=== PATIENT | female | born 1980 | race Caucasian/White ===

== ENCOUNTER 2017-09-03 14:58 | Inpatient (IN) ==
[2017-09-03] MEDS ORDERED: ONDANSETRON 4 MG/2 ML VIAL IV PRN (16:08)
[2017-09-03] MEDS ORDERED: DEXTROSE 50% 25 GM/50 ML VIAL IV PRN (16:08)
[2017-09-03] MEDS ORDERED: GLUCAGON 1 MG VIAL IM PRN (16:08)
[2017-09-03] MEDS ORDERED: ACETAMINOPHEN 325 MG TABLET PO PRN (16:08)
[2017-09-03] MEDS: INSULIN LISPRO 100 UNIT/ML SUBCUT SCH ×2 (16:38→21:21)
[2017-09-03 17:16] LABS: Basophils # 0.1 10*3/uL (0.0-0.2); Basophils % 0.4 % (0.0-0.8); Eosinophils # 0.2 10*3/uL (0.0-0.87); Eosinophils % 0.9 % (0.00-10.9); Hematocrit 40.9 VOL% (35.7-47.0); Immature Granulocytes % 0.6 %; Lymphocytes # 2.5 10*3/uL (1.4-4.0); Mean Corpuscular HGB Conc 34.2 GM/DL (32-36); Mean Corpuscular Hemoglobin 31 PG (27-34); Mean Corpuscular Volume 89.1 FL (87-102); Mean Platelet Volume 11.7 FL (9.6-12.0); Monocytes # 1.7 10*3/uL (0.11-0.8); Monocytes % 10.1 % (1.7-12.7); Neutrophils # 12.1 10*3/uL (1.4-7.4); Platelet Count 293 T/CUMM (130-400); Red Blood Count 4.59 MC/CUMM (3.8-5.5); White Blood Count 16.5 T/CUMM (4-12)
[2017-09-03] MEDS: ceFAZolin 1,000 MG in SYRINGE 1 EACH IV SCH (17:36)
[2017-09-03] MEDS: SODIUM CHLORIDE 0.9% 1,000 ML IV SCH (17:36)
[2017-09-03 17:41] LABS: Albumin 2.8 G/DL (3.4-5.0); Bilirubin,Total 0.8 MG/DL (0.2-1.0); Calcium 9.2 MG/DL (8.5-10.1); Osmolality,Calculated 274.8 MOS/KG (273-304); Potassium 3.6 MMOL/L (3.5-5.1); Total Protein 7.8 G/DL (6.4-8.3)
[2017-09-03] MEDS: CLINDAMYCIN INJ 600 MG in PREMIX 1 EACH IV SCH (17:41)
[2017-09-03] MEDS ORDERED: busPIRone 5 MG TABLET PO PRN (20:10)
[2017-09-03] MEDS ORDERED: CYCLOBENZAPRINE 10 MG TABLET PO PRN (20:10)
[2017-09-03] MEDS ORDERED: ALBUTEROL 2.5 MG/3 ML NEB RESP TX PRN (20:10)
[2017-09-03] MEDS: DOCUSATE SODIUM 100 MG CAPSULE PO SCH (21:19)
[2017-09-03 21:38] LABS: Apearance,Urine CLEAR (Clear); Bilirubin,Urine Negative (Negative); Blood, Urine Small mg/dL (Negative); Glucose,Urine (UA) >=500 mg/dL (Negative); Ketones,Urine 20 mg/dL (Negative); Nitrite,Urine Negative (Negative); Protein,Urine Negative; RBC,Urine 2 /HPF (0-4); Squamous Epithelial Cell,Urine Occasional /HPF (0-10); Urine Color Yellow (Yellow); Urine Specific Gravity 1.052 (1.001-1.035); Urine Urobilinogen < 2.0 EU/DL (0.2-1.0); WBC,Urine 1 /HPF (0-6)
[2017-09-03 21:48] LABS: Barbiturates Screen,Urine Negative (Negative); Benzodiazepines Screen,Urine Negative (Negative); Cannabinoid Screen,Urine Negative (Negative); Opiate Screen,Urine Positive (Negative); Phencyclidine Screen,Urine Negative (Negative)
[2017-09-04] MEDS: ceFAZolin 1,000 MG in SYRINGE 1 EACH IV SCH ×3 (01:06→16:54)
[2017-09-04] MEDS: CLINDAMYCIN INJ 600 MG in PREMIX 1 EACH IV SCH ×3 (01:12→16:58)
[2017-09-04] MEDS: SODIUM CHLORIDE 0.9% 1,000 ML IV SCH ×4 (01:13→18:43)
[2017-09-04 07:16] LABS: Basophils # 0.1 10*3/uL (0.0-0.2); Basophils % 0.4 % (0.0-0.8); Eosinophils # 0.2 10*3/uL (0.0-0.87); Eosinophils % 1.2 % (0.00-10.9); Hematocrit 35.5 VOL% (35.7-47.0); Hemoglobin 12.1 GM/DL (12.0-16.0); Immature Granulocytes % 0.8 %; Lymphocytes # 2.3 10*3/uL (1.4-4.0); Lymphocytes % 17.3 % (21.3-54.2); Mean Corpuscular HGB Conc 34.1 GM/DL (32-36); Mean Corpuscular Hemoglobin 31 PG (27-34); Mean Corpuscular Volume 89.6 FL (87-102); Mean Platelet Volume 11.5 FL (9.6-12.0); Monocytes # 1.2 10*3/uL (0.11-0.8); Neutrophils # 9.3 10*3/uL (1.4-7.4); Neutrophils % 71.3 % (38.7-73.9); Platelet Count 237 T/CUMM (130-400); Red Blood Count 3.96 MC/CUMM (3.8-5.5)
[2017-09-04] MEDS: TOPIRAMATE 25 MG TABLET PO SCH ×4 (07:34→21:22)
[2017-09-04 07:42] LABS: Calcium 7.4 MG/DL (8.5-10.1); Osmolality,Calculated 278.1 MOS/KG (273-304); Potassium 3.5 MMOL/L (3.5-5.1)
[2017-09-04] MEDS: INSULIN LISPRO 100 UNIT/ML SUBCUT SCH ×4 (09:11→21:22)
[2017-09-04] MEDS ORDERED: MAGNESIUM SULF RIDER 2 GM in PREMIX 1 EACH IV ONE (09:16)
[2017-09-04] MEDS ORDERED: DIAZEPAM 5 MG TABLET PO ONE (09:34)
[2017-09-04] MEDS: metFORMIN 500 MG TABLET PO SCH ×3 (09:41→18:05)
[2017-09-04] MEDS: glipiZIDE 10 MG TABLET PO SCH ×3 (09:42→21:21)
[2017-09-04] MEDS: LISINOPRIL/HCTZ 10-12.5 MG TABLET PO SCH (09:53)
[2017-09-04] MEDS: PANTOPRAZOLE 40 MG TABLET PO SCH (09:54)
[2017-09-04] MEDS ORDERED: BUPIVACAINE 0.25% /EPI 10 ML VIAL ONE (11:13)
[2017-09-04] MEDS ORDERED: ALBUTEROL/IPRATROPIUM 3 ML NEB RESP TX ONE (12:29)
[2017-09-04] MEDS ORDERED: SEVOFLURANE 1 UNIT/15 MINUTE INH ONE (12:39)
[2017-09-04] MEDS ORDERED: PROPOFOL 200 MG/20 ML VIAL IV ONE (12:39)
[2017-09-04] MEDS ORDERED: SUCCINYLCHOLINE 200 MG/10 ML VIAL ONE (12:40)
[2017-09-04] MEDS ORDERED: MIDAZOLAM 2 MG/2 ML VIAL ONE (12:40)
[2017-09-04] MEDS ORDERED: fentaNYL 100 MCG/2 ML VIAL ONE (12:40)
[2017-09-04] MEDS ORDERED: PHENYLEPHRINE 1 MG/10 ML SYRINGE IV ONE (12:41)
[2017-09-04] MEDS ORDERED: ONDANSETRON 4 MG/2 ML VIAL ONE (12:42)
[2017-09-04] MEDS ORDERED: HYDROmorphone 2 MG/1 ML VIAL ONE (12:42)
[2017-09-04] MEDS ORDERED: ONDANSETRON 4 MG/2 ML VIAL IV PRN (12:43)
[2017-09-04] MEDS: HYDROmorphone 2 MG/1 ML VIAL IV PRN ×2 (12:45→12:55)
[2017-09-04] MEDS: BUDESONIDE/FORMOTEROL 160-4.5 INHALER 6 GM INH SCH ×3 (13:10→21:22)
[2017-09-04] MEDS: DOCUSATE SODIUM 100 MG CAPSULE PO SCH ×2 (14:40→21:21)
[2017-09-04] MEDS: PIOGLITAZONE 15 MG TABLET PO SCH (14:42)
[2017-09-05] MEDS: SODIUM CHLORIDE 0.9% 1,000 ML IV SCH ×2 (01:10→09:50)
[2017-09-05] MEDS: ceFAZolin 1,000 MG in SYRINGE 1 EACH IV SCH ×3 (01:15→17:50)
[2017-09-05] MEDS: CLINDAMYCIN INJ 600 MG in PREMIX 1 EACH IV SCH ×3 (01:18→17:49)
[2017-09-05] MEDS: TOPIRAMATE 25 MG TABLET PO SCH ×3 (07:21→21:30)
[2017-09-05] MEDS: metFORMIN 500 MG TABLET PO SCH ×3 (08:05→17:49)
[2017-09-05 08:12] LABS: Basophils # 0.1 10*3/uL (0.0-0.2); Basophils % 0.5 % (0.0-0.8); Eosinophils # 0.2 10*3/uL (0.0-0.87); Eosinophils % 1.8 % (0.00-10.9); Hematocrit 37.9 VOL% (35.7-47.0); Hemoglobin 12.9 GM/DL (12.0-16.0); Immature Granulocytes Absolute 0.13 #; Lymphocytes # 2.3 10*3/uL (1.4-4.0); Lymphocytes % 17.5 % (21.3-54.2); Mean Corpuscular Hemoglobin 31 PG (27-34); Mean Corpuscular Volume 91.1 FL (87-102); Monocytes # 0.9 10*3/uL (0.11-0.8); Monocytes % 6.7 % (1.7-12.7); Neutrophils # 9.3 10*3/uL (1.4-7.4); Neutrophils % 72.5 % (38.7-73.9); Platelet Count 277 T/CUMM (130-400); Red Blood Count 4.16 MC/CUMM (3.8-5.5); White Blood Count 12.9 T/CUMM (4-12)
[2017-09-05 08:46] LABS: Calcium 8.6 MG/DL (8.5-10.1); Osmolality,Calculated 277.8 MOS/KG (273-304); Potassium 3.5 MMOL/L (3.5-5.1)
[2017-09-05] MEDS: BUDESONIDE/FORMOTEROL 160-4.5 INHALER 6 GM INH SCH ×2 (09:46→21:29)
[2017-09-05] MEDS: INSULIN LISPRO 100 UNIT/ML SUBCUT SCH ×4 (09:46→21:25)
[2017-09-05] MEDS: PIOGLITAZONE 15 MG TABLET PO SCH (09:56)
[2017-09-05] MEDS: DOCUSATE SODIUM 100 MG CAPSULE PO SCH ×2 (09:56→21:25)
[2017-09-05] MEDS: PANTOPRAZOLE 40 MG TABLET PO SCH (09:56)
[2017-09-05] MEDS: glipiZIDE 10 MG TABLET PO SCH ×2 (09:56→21:24)
[2017-09-05] MEDS: LISINOPRIL/HCTZ 10-12.5 MG TABLET PO SCH (13:54)
[2017-09-06] MEDS: ceFAZolin 1,000 MG in SYRINGE 1 EACH IV SCH ×3 (01:05→17:14)
[2017-09-06] MEDS: CLINDAMYCIN INJ 600 MG in PREMIX 1 EACH IV SCH ×3 (01:47→17:19)
[2017-09-06 05:35] LABS: Basophils # 0.1 10*3/uL (0.0-0.2); Basophils % 0.6 % (0.0-0.8); Eosinophils # 0.4 10*3/uL (0.0-0.87); Hemoglobin 12.7 GM/DL (12.0-16.0); Immature Granulocytes % 1.3 %; Immature Granulocytes Absolute 0.15 #; Lymphocytes # 2.4 10*3/uL (1.4-4.0); Lymphocytes % 20.5 % (21.3-54.2); Mean Corpuscular HGB Conc 33.4 GM/DL (32-36); Mean Corpuscular Hemoglobin 30 PG (27-34); Mean Corpuscular Volume 89.8 FL (87-102); Mean Platelet Volume 10.8 FL (9.6-12.0); Monocytes # 0.8 10*3/uL (0.11-0.8); Monocytes % 6.9 % (1.7-12.7); Neutrophils # 7.8 10*3/uL (1.4-7.4); Neutrophils % 67.7 % (38.7-73.9); Platelet Count 322 T/CUMM (130-400); Red Blood Count 4.23 MC/CUMM (3.8-5.5); Red Cell Distribution Width 12.3 % (9.3-17.3); White Blood Count 11.6 T/CUMM (4-12)
[2017-09-06 05:52] LABS: Calcium 8.4 MG/DL (8.5-10.1); Osmolality,Calculated 277.7 MOS/KG (273-304); Potassium 3.6 MMOL/L (3.5-5.1)
[2017-09-06] MEDS: TOPIRAMATE 25 MG TABLET PO SCH ×3 (06:15→21:20)
[2017-09-06] MEDS: SODIUM CHLORIDE 0.9% 1,000 ML IV SCH (07:07)
[2017-09-06] MEDS: glipiZIDE 10 MG TABLET PO SCH ×2 (09:50→21:14)
[2017-09-06] MEDS: metFORMIN 500 MG TABLET PO SCH ×3 (09:50→17:15)
[2017-09-06] MEDS: PANTOPRAZOLE 40 MG TABLET PO SCH (09:51)
[2017-09-06] MEDS: DOCUSATE SODIUM 100 MG CAPSULE PO SCH ×2 (09:51→21:14)
[2017-09-06] MEDS: PIOGLITAZONE 15 MG TABLET PO SCH (09:51)
[2017-09-06] MEDS: LISINOPRIL/HCTZ 10-12.5 MG TABLET PO SCH (09:56)
[2017-09-06] MEDS: INSULIN LISPRO 100 UNIT/ML SUBCUT SCH ×4 (09:58→21:19)
[2017-09-06] MEDS: BUDESONIDE/FORMOTEROL 160-4.5 INHALER 6 GM INH SCH ×2 (10:14→21:20)
[2017-09-06] MEDS ORDERED: hydrALAZINE 20 MG/1 ML VIAL IV PRN (10:57)
[2017-09-07] MEDS: ceFAZolin 1,000 MG in SYRINGE 1 EACH IV SCH ×3 (01:14→17:40)
[2017-09-07] MEDS: CLINDAMYCIN INJ 600 MG in PREMIX 1 EACH IV SCH ×3 (01:18→17:45)
[2017-09-07 06:55] LABS: Basophils # 0.1 10*3/uL (0.0-0.2); Basophils % 0.7 % (0.0-0.8); Eosinophils # 0.4 10*3/uL (0.0-0.87); Eosinophils % 3.5 % (0.00-10.9); Hemoglobin 12.8 GM/DL (12.0-16.0); Immature Granulocytes % 1.3 %; Immature Granulocytes Absolute 0.16 #; Lymphocytes # 2.4 10*3/uL (1.4-4.0); Lymphocytes % 19.9 % (21.3-54.2); Mean Corpuscular HGB Conc 33.7 GM/DL (32-36); Mean Corpuscular Hemoglobin 30 PG (27-34); Mean Corpuscular Volume 89.8 FL (87-102); Mean Platelet Volume 10.9 FL (9.6-12.0); Monocytes # 0.8 10*3/uL (0.11-0.8); Monocytes % 6.7 % (1.7-12.7); Neutrophils # 8.2 10*3/uL (1.4-7.4); Neutrophils % 67.9 % (38.7-73.9); Platelet Count 355 T/CUMM (130-400); Red Blood Count 4.23 MC/CUMM (3.8-5.5); Red Cell Distribution Width 12.3 % (9.3-17.3); White Blood Count 12.1 T/CUMM (4-12)
[2017-09-07] MEDS: TOPIRAMATE 25 MG TABLET PO SCH ×3 (07:13→21:40)
[2017-09-07 07:26] LABS: Calcium 8.3 MG/DL (8.5-10.1); Osmolality,Calculated 273.1 MOS/KG (273-304); Potassium 3.7 MMOL/L (3.5-5.1)
[2017-09-07] MEDS: metFORMIN 500 MG TABLET PO SCH ×3 (08:46→17:41)
[2017-09-07] MEDS: glipiZIDE 10 MG TABLET PO SCH ×2 (08:47→21:39)
[2017-09-07] MEDS: PIOGLITAZONE 15 MG TABLET PO SCH (08:47)
[2017-09-07] MEDS: LISINOPRIL/HCTZ 10-12.5 MG TABLET PO SCH (08:47)
[2017-09-07] MEDS: DOCUSATE SODIUM 100 MG CAPSULE PO SCH ×2 (08:48→21:39)
[2017-09-07] MEDS: PANTOPRAZOLE 40 MG TABLET PO SCH (08:48)
[2017-09-07] MEDS: INSULIN LISPRO 100 UNIT/ML SUBCUT SCH ×4 (09:50→21:39)
[2017-09-07] MEDS: BUDESONIDE/FORMOTEROL 160-4.5 INHALER 6 GM INH SCH ×2 (10:09→21:40)
[2017-09-08] MEDS: ceFAZolin 1,000 MG in SYRINGE 1 EACH IV SCH ×3 (00:10→22:47)
[2017-09-08] MEDS: CLINDAMYCIN INJ 600 MG in PREMIX 1 EACH IV SCH ×3 (02:02→17:17)
[2017-09-08] MEDS: TOPIRAMATE 25 MG TABLET PO SCH ×3 (05:33→22:52)
[2017-09-08 08:04] LABS: Basophils # 0.1 10*3/uL (0.0-0.2); Basophils % 0.7 % (0.0-0.8); Eosinophils # 0.5 10*3/uL (0.0-0.87); Eosinophils % 3.5 % (0.00-10.9); Hemoglobin 13.7 GM/DL (12.0-16.0); Immature Granulocytes % 1.6 %; Immature Granulocytes Absolute 0.24 #; Lymphocytes # 2.9 10*3/uL (1.4-4.0); Lymphocytes % 19.9 % (21.3-54.2); Mean Corpuscular HGB Conc 33.4 GM/DL (32-36); Mean Corpuscular Hemoglobin 30 PG (27-34); Mean Corpuscular Volume 89.5 FL (87-102); Mean Platelet Volume 10.8 FL (9.6-12.0); Monocytes # 0.9 10*3/uL (0.11-0.8); Monocytes % 6.1 % (1.7-12.7); Neutrophils % 68.2 % (38.7-73.9); Platelet Count 400 T/CUMM (130-400); Red Blood Count 4.58 MC/CUMM (3.8-5.5); Red Cell Distribution Width 12.5 % (9.3-17.3); White Blood Count 14.8 T/CUMM (4-12)
[2017-09-08 08:37] LABS: Calcium 8.8 MG/DL (8.5-10.1); Osmolality,Calculated 274.5 MOS/KG (273-304); Potassium 3.6 MMOL/L (3.5-5.1)
[2017-09-08 08:57] LABS: T4 (Thyroxine) 10.7 UG/DL (4.7-13.3); Thyroid Stimulating Hormone 0.294 uIU/ml (0.358-3.74)
[2017-09-08] MEDS: glipiZIDE 10 MG TABLET PO SCH ×2 (09:14→22:45)
[2017-09-08] MEDS: PIOGLITAZONE 15 MG TABLET PO SCH (09:14)
[2017-09-08] MEDS: PANTOPRAZOLE 40 MG TABLET PO SCH (09:15)
[2017-09-08] MEDS: metFORMIN 500 MG TABLET PO SCH ×3 (09:15→17:18)
[2017-09-08] MEDS: DOCUSATE SODIUM 100 MG CAPSULE PO SCH ×2 (09:15→22:45)
[2017-09-08] MEDS: BUDESONIDE/FORMOTEROL 160-4.5 INHALER 6 GM INH SCH ×2 (09:32→22:51)
[2017-09-08] MEDS: LISINOPRIL/HCTZ 10-12.5 MG TABLET PO SCH (09:32)
[2017-09-08] MEDS: INSULIN LISPRO 100 UNIT/ML SUBCUT SCH ×4 (09:34→22:45)
[2017-09-09] MEDS: CLINDAMYCIN INJ 600 MG in PREMIX 1 EACH IV SCH ×2 (01:30→10:09)
[2017-09-09] MEDS: ceFAZolin 1,000 MG in SYRINGE 1 EACH IV SCH ×2 (07:06→14:41)
[2017-09-09] MEDS: TOPIRAMATE 25 MG TABLET PO SCH ×2 (07:08→14:41)
[2017-09-09 09:39] LABS: Basophils # 0.1 10*3/uL (0.0-0.2); Basophils % 0.9 % (0.0-0.8); Eosinophils # 0.7 10*3/uL (0.0-0.87); Eosinophils % 4.5 % (0.00-10.9); Hematocrit 43.6 VOL% (35.7-47.0); Hemoglobin 14.4 GM/DL (12.0-16.0); Immature Granulocytes % 1.9 %; Lymphocytes # 2.9 10*3/uL (1.4-4.0); Lymphocytes % 18.6 % (21.3-54.2); Mean Corpuscular Hemoglobin 30 PG (27-34); Mean Corpuscular Volume 91.6 FL (87-102); Mean Platelet Volume 10.3 FL (9.6-12.0); Monocytes # 0.9 10*3/uL (0.11-0.8); Monocytes % 5.4 % (1.7-12.7); Neutrophils # 10.7 10*3/uL (1.4-7.4); Neutrophils % 68.7 % (38.7-73.9); Platelet Count 417 T/CUMM (130-400); Red Blood Count 4.76 MC/CUMM (3.8-5.5); Red Cell Distribution Width 12.3 % (9.3-17.3); White Blood Count 15.6 T/CUMM (4-12)
[2017-09-09 10:03] LABS: Calcium 8.9 MG/DL (8.5-10.1); Potassium 4.3 MMOL/L (3.5-5.1)
[2017-09-09] MEDS: INSULIN LISPRO 100 UNIT/ML SUBCUT SCH ×2 (10:09→11:58)
[2017-09-09] MEDS: LISINOPRIL/HCTZ 10-12.5 MG TABLET PO SCH (10:09)
[2017-09-09] MEDS: PIOGLITAZONE 15 MG TABLET PO SCH (10:10)
[2017-09-09] MEDS: glipiZIDE 10 MG TABLET PO SCH (10:10)
[2017-09-09] MEDS: metFORMIN 500 MG TABLET PO SCH ×2 (10:10→11:58)
[2017-09-09] MEDS: DOCUSATE SODIUM 100 MG CAPSULE PO SCH (10:10)
[2017-09-09] MEDS: BUDESONIDE/FORMOTEROL 160-4.5 INHALER 6 GM INH SCH (10:11)
[2017-09-09] MEDS: PANTOPRAZOLE 40 MG TABLET PO SCH (10:11)
[2017-09-09 18:15] VITALS: BP 116/67
== END 2017-09-09 14:38 | disposition home or self-care (01) | DRG 501 ==
LOC: N.ADMINP 15:05 → N.5E 15:41
PROVIDERS: ADMIT Family Medicine; ATTEND Family Medicine

== ENCOUNTER 2020-08-09 11:56 | Inpatient (IN) ==
[2020-08-09] MEDS ORDERED: ONDANSETRON 4 MG/2 ML VIAL IV PRN (13:28)
[2020-08-09] MEDS ORDERED: MAGNESIUM SULF RIDER 2 GM/50 ML PREMIX IV PRN (13:28)
[2020-08-09] MEDS ORDERED: ACETAMINOPHEN 325 MG TABLET PO PRN (13:28)
[2020-08-09] MEDS ORDERED: GLUCAGON 1 MG VIAL IM PRN (13:28)
[2020-08-09] MEDS ORDERED: DEXTROSE 50% 25 GM/50 ML VIAL IV PRN (13:28)
[2020-08-09] MEDS ORDERED: VANCOMYCIN INJ 1,000 MG in SODIUM CHLORIDE 0.9% 250 ML IV SCH (13:30)
[2020-08-09] MEDS ORDERED: hydrALAZINE 20 MG/1 ML VIAL IV PRN (13:34)
[2020-08-09] MEDS ORDERED: PIPERACILLIN/TAZOBACTAM 3,375 MG in SODIUM CHLORIDE 0.9% 100 ML IV SCH (14:00)
[2020-08-09 14:01] LABS: Basophils # 0.1 10*3/uL (0.0-0.2); Basophils % 0.6 % (0.0-0.8); Eosinophils # 0.2 10*3/uL (0.0-0.87); Eosinophils % 0.9 % (0.00-10.9); Hematocrit 41.3 VOL% (35.7-47.0); Hemoglobin 13.3 GM/DL (12.0-16.0); Immature Granulocytes Absolute 0.25 #; Lymphocytes # 2.5 10*3/uL (1.4-4.0); Lymphocytes % 10.1 % (21.3-54.2); Mean Corpuscular HGB Conc 32.2 GM/DL (32-36); Mean Platelet Volume 9.8 FL (9.6-12.0); Monocytes % 6.8 % (1.7-12.7); Neutrophils % 80.6 % (38.7-73.9); Platelet Count 512 T/CUMM (130-400); Red Blood Count 4.49 MC/CUMM (3.8-5.5); Red Cell Distribution Width 11.9 % (9.3-17.3); White Blood Count 25.1 T/CUMM (4-12)
[2020-08-09] MEDS: MORPHINE 4 MG/1 ML VIAL IV PRN ×2 (14:12→16:50)
[2020-08-09 14:18] LABS: Albumin 2.5 G/DL (3.4-5.0); Bilirubin,Total 0.6 MG/DL (0.2-1.0); Calcium 9.2 MG/DL (8.5-10.1); Osmolality,Calculated 277.8 MOS/KG (273-304); Potassium 3.2 MMOL/L (3.5-5.1)
[2020-08-09] MEDS: SODIUM CHLORIDE 0.9% 1,000 ML IV SCH ×2 (16:09→20:58)
[2020-08-09] MEDS: CEFEPIME 1,000 MG in SODIUM CHLORIDE 0.9% 100 ML IV SCH ×2 (16:10→20:58)
[2020-08-09] MEDS: VANCOMYCIN INJ 1,500 MG in SODIUM CHLORIDE 0.9% 500 ML IV SCH (16:10)
[2020-08-09] MEDS: ENOXAPARIN 40 MG/0.4 ML SYRINGE SUBCUT SCH (16:10)
[2020-08-09] MEDS: INSULIN LISPRO 100 UNIT/ML SUBCUT SCH ×2 (17:07→20:58)
[2020-08-09] MEDS ORDERED: fentaNYL 100 MCG/2 ML VIAL ONE ×2 (17:58→18:52)
[2020-08-09 18:01] LABS: Bacteria,Urine Occasional /HPF (Few); Bilirubin,Urine Negative (Negative); Blood, Urine Small mg/dL (Negative); Glucose,Urine (UA) 50 mg/dL (Negative); Ketones,Urine 20 mg/dL (Negative); Mucus,Urine Occasional /LPF (Occasional); Nitrite,Urine Negative (Negative); Protein,Urine 30 MG/DL; RBC,Urine 1 /HPF (0-4); Squamous Epithelial Cell,Urine Many /HPF (0-10); Urine Appearance CLOUDY (Clear); Urine Color Yellow (Yellow); Urine Specific Gravity 1.013 (1.001-1.035); Urine Urobilinogen < 2.0 EU/DL (0.2-1.0)
[2020-08-09 18:08] LABS: Barbiturates Screen,Urine Negative (Negative); Benzodiazepines Screen,Urine Negative (Negative); Cannabinoid Screen,Urine Negative (Negative); Opiate Screen,Urine Positive (Negative); Phencyclidine Screen,Urine Negative (Negative)
[2020-08-09] MEDS ORDERED: ONDANSETRON 4 MG/2 ML VIAL ONE (18:34)
[2020-08-09] MEDS ORDERED: ROCURONIUM 50 MG/5 ML VIAL IV ONE (18:34)
[2020-08-09] MEDS ORDERED: LIDOCAINE 2% 5 ML VIAL ONE (18:34)
[2020-08-09] MEDS ORDERED: propofoL 200 MG/20 ML VIAL IV ONE (18:34)
[2020-08-09] MEDS ORDERED: SUCCINYLCHOLINE 200 MG/10 ML VIAL ONE (18:34)
[2020-08-09 18:42] LABS: Band Neutrophils 1 % (0-10); Lymphocytes 9 % (20-55); Platelet Estimate Increased; Segmented Neutrophils 84 % (50-85); Total Cells Counted 100
[2020-08-09] MEDS ORDERED: SUGAMMADEX 200 MG/2 ML VIAL IV ONE (18:46)
[2020-08-09] MEDS ORDERED: SEVOFLURANE 1 UNIT/15 MINUTE INH ONE (19:06)
[2020-08-09] MEDS: DOCUSATE SODIUM 100 MG CAPSULE PO SCH (20:54)
[2020-08-10] MEDS: CEFEPIME 1,000 MG in SODIUM CHLORIDE 0.9% 100 ML IV SCH ×4 (03:30→20:39)
[2020-08-10] MEDS: VANCOMYCIN INJ 1,500 MG in SODIUM CHLORIDE 0.9% 500 ML IV SCH ×2 (04:36→16:04)
[2020-08-10 05:44] LABS: Basophils # 0.1 10*3/uL (0.0-0.2); Basophils % 0.4 % (0.0-0.8); Eosinophils # 0.1 10*3/uL (0.0-0.87); Eosinophils % 0.3 % (0.00-10.9); Hematocrit 34.6 VOL% (35.7-47.0); Hemoglobin 11.7 GM/DL (12.0-16.0); Immature Granulocytes Absolute 0.26 #; Lymphocytes # 2.4 10*3/uL (1.4-4.0); Mean Corpuscular HGB Conc 33.8 GM/DL (32-36); Mean Corpuscular Volume 91.5 FL (87-102); Mean Platelet Volume 9.9 FL (9.6-12.0); Monocytes % 6.9 % (1.7-12.7); Neutrophils % 82.4 % (38.7-73.9); Platelet Count 407 T/CUMM (130-400); Red Blood Count 3.78 MC/CUMM (3.8-5.5); White Blood Count 26.2 T/CUMM (4-12)
[2020-08-10 06:03] LABS: Albumin 2.1 G/DL (3.4-5.0); Bilirubin,Total 0.6 MG/DL (0.2-1.0); Calcium 8.2 MG/DL (8.5-10.1); Osmolality,Calculated 277.4 MOS/KG (273-304); Potassium 3.1 MMOL/L (3.5-5.1); Total Protein 6.9 G/DL (6.4-8.2)
[2020-08-10 06:08] LABS: Hypochromasia 1+; Lymphocytes 12 % (20-55); Microcytosis 1+; Platelet Estimate Adequate; Segmented Neutrophils 84 % (50-85); Total Cells Counted 100
[2020-08-10] MEDS: SODIUM CHLORIDE 0.9% 1,000 ML IV SCH ×3 (08:27→15:25)
[2020-08-10] MEDS: INSULIN LISPRO 100 UNIT/ML SUBCUT SCH ×4 (09:06→20:40)
[2020-08-10] MEDS: PANTOPRAZOLE 40 MG TABLET PO SCH (09:08)
[2020-08-10] MEDS: INSULIN GLARGINE 100 UNIT/ML SUBCUT SCH (09:08)
[2020-08-10] MEDS: DOCUSATE SODIUM 100 MG CAPSULE PO SCH ×2 (09:08→20:40)
[2020-08-10] MEDS: POTASSIUM CHLORIDE RIDER 10 MEQ/100 ML PREMIX IV PRN ×4 (10:53→14:06)
[2020-08-10] MEDS: MAGNESIUM SULF RIDER 4 GM/100 ML PREMIX IV PRN (10:53)
[2020-08-10] MEDS: HYDROmorphone 2 MG/1 ML VIAL IV PRN (13:17)
[2020-08-10] MEDS: SODIUM HYPOCHLORITE 0.25% IRRIG 473 ML BOTTLE TOP SCH (13:53)
[2020-08-10] MEDS: MORPHINE 4 MG/1 ML VIAL IV PRN (20:55)
[2020-08-11] MEDS: CEFEPIME 1,000 MG in SODIUM CHLORIDE 0.9% 100 ML IV SCH ×4 (03:12→20:59)
[2020-08-11] MEDS: VANCOMYCIN INJ 1,500 MG in SODIUM CHLORIDE 0.9% 500 ML IV SCH (04:03)
[2020-08-11] MEDS ORDERED: LIDOCAINE 2% 5 ML VIAL ONE (06:31)
[2020-08-11] MEDS ORDERED: ONDANSETRON 4 MG/2 ML VIAL ONE (06:31)
[2020-08-11] MEDS ORDERED: SEVOFLURANE 1 UNIT/15 MINUTE INH ONE (06:31)
[2020-08-11] MEDS ORDERED: propofoL 200 MG/20 ML VIAL IV ONE (06:31)
[2020-08-11] MEDS ORDERED: MIDAZOLAM 2 MG/2 ML VIAL ONE (06:32)
[2020-08-11] MEDS ORDERED: fentaNYL 100 MCG/2 ML VIAL ONE ×3 (06:32→08:13)
[2020-08-11] MEDS ORDERED: SUCCINYLCHOLINE 200 MG/10 ML VIAL ONE (07:06)
[2020-08-11] MEDS ORDERED: ROCURONIUM 50 MG/5 ML VIAL IV ONE (07:06)
[2020-08-11] MEDS: INSULIN LISPRO 100 UNIT/ML SUBCUT SCH ×4 (07:30→21:04)
[2020-08-11] MEDS ORDERED: LACTATED RINGERS 1,000 ML IV SCH (07:30)
[2020-08-11] MEDS ORDERED: ACETAMINOPHEN INJ 1,000 MG/100 ML VIAL IV ONE (08:08)
[2020-08-11] MEDS: SODIUM HYPOCHLORITE 0.25% IRRIG 473 ML BOTTLE TOP SCH (09:00)
[2020-08-11 10:14] LABS: Basophils # 0.1 10*3/uL (0.0-0.2); Basophils % 0.6 % (0.0-0.8); Eosinophils # 0.3 10*3/uL (0.0-0.87); Eosinophils % 1.8 % (0.00-10.9); Hematocrit 35.2 VOL% (35.7-47.0); Hemoglobin 11.3 GM/DL (12.0-16.0); Immature Granulocytes % 1.2 %; Immature Granulocytes Absolute 0.19 #; Lymphocytes # 2.2 10*3/uL (1.4-4.0); Lymphocytes % 13.5 % (21.3-54.2); Mean Corpuscular HGB Conc 32.1 GM/DL (32-36); Mean Corpuscular Volume 92.4 FL (87-102); Mean Platelet Volume 9.7 FL (9.6-12.0); Monocytes % 5.8 % (1.7-12.7); Neutrophils % 77.1 % (38.7-73.9); Platelet Count 456 T/CUMM (130-400); Red Blood Count 3.81 MC/CUMM (3.8-5.5); Red Cell Distribution Width 11.9 % (9.3-17.3); White Blood Count 16.2 T/CUMM (4-12)
[2020-08-11 10:31] LABS: Albumin 1.9 G/DL (3.4-5.0); Bilirubin,Total 0.8 MG/DL (0.2-1.0); Calcium 8.4 MG/DL (8.5-10.1); Osmolality,Calculated 279.8 MOS/KG (273-304); Potassium 3.4 MMOL/L (3.5-5.1)
[2020-08-11] MEDS: INSULIN GLARGINE 100 UNIT/ML SUBCUT SCH (10:43)
[2020-08-11] MEDS: DOCUSATE SODIUM 100 MG CAPSULE PO SCH ×2 (10:43→20:58)
[2020-08-11] MEDS: PANTOPRAZOLE 40 MG TABLET PO SCH (10:44)
[2020-08-11] MEDS ORDERED: DEXTROSE 50% 25 GM/50 ML VIAL IV PRN (11:56)
[2020-08-11] MEDS ORDERED: GLUCAGON 1 MG VIAL IM PRN (11:56)
[2020-08-11] MEDS: carvediloL 3.125 MG TABLET PO SCH ×2 (13:02→20:58)
[2020-08-11] MEDS: SODIUM CHLORIDE 0.9% 1,000 ML IV SCH ×2 (20:15→23:01)
[2020-08-11] MEDS: metFORMIN 500 MG TABLET PO SCH (21:04)
[2020-08-12] MEDS: CEFEPIME 1,000 MG in SODIUM CHLORIDE 0.9% 100 ML IV SCH ×4 (03:50→20:12)
[2020-08-12 06:01] LABS: Basophils # 0.1 10*3/uL (0.0-0.2); Basophils % 0.8 % (0.0-0.8); Eosinophils # 0.5 10*3/uL (0.0-0.87); Eosinophils % 3.2 % (0.00-10.9); Hematocrit 33.5 VOL% (35.7-47.0); Hemoglobin 10.5 GM/DL (12.0-16.0); Immature Granulocytes % 0.9 %; Immature Granulocytes Absolute 0.13 #; Lymphocytes # 2.9 10*3/uL (1.4-4.0); Lymphocytes % 20.1 % (21.3-54.2); Mean Corpuscular HGB Conc 31.3 GM/DL (32-36); Mean Corpuscular Volume 93.8 FL (87-102); Mean Platelet Volume 10.1 FL (9.6-12.0); Monocytes % 6.8 % (1.7-12.7); Neutrophils % 68.2 % (38.7-73.9); Platelet Count 422 T/CUMM (130-400); Red Blood Count 3.57 MC/CUMM (3.8-5.5); Red Cell Distribution Width 11.9 % (9.3-17.3); White Blood Count 14.4 T/CUMM (4-12)
[2020-08-12 06:30] LABS: Albumin 1.9 G/DL (3.4-5.0); Bilirubin,Total 0.7 MG/DL (0.2-1.0); Calcium 8.7 MG/DL (8.5-10.1); Osmolality,Calculated 277.7 MOS/KG (273-304); Potassium 2.9 MMOL/L (3.5-5.1); Total Protein 6.9 G/DL (6.4-8.2)
[2020-08-12] MEDS: SODIUM CHLORIDE 0.9% 1,000 ML IV SCH (09:18)
[2020-08-12] MEDS: INSULIN GLARGINE 100 UNIT/ML SUBCUT SCH (09:20)
[2020-08-12] MEDS: INSULIN LISPRO 100 UNIT/ML SUBCUT SCH ×4 (09:20→21:47)
[2020-08-12] MEDS: PIOGLITAZONE 15 MG TABLET PO SCH (09:23)
[2020-08-12] MEDS: carvediloL 3.125 MG TABLET PO SCH ×2 (09:23→20:13)
[2020-08-12] MEDS: metFORMIN 500 MG TABLET PO SCH ×2 (09:23→16:53)
[2020-08-12] MEDS: DOCUSATE SODIUM 100 MG CAPSULE PO SCH ×2 (09:23→20:13)
[2020-08-12] MEDS: PANTOPRAZOLE 40 MG TABLET PO SCH (09:24)
[2020-08-12] MEDS: HYDROmorphone 2 MG/1 ML VIAL IV PRN ×3 (10:45→21:48)
[2020-08-12] MEDS: SODIUM HYPOCHLORITE 0.25% IRRIG 473 ML BOTTLE TOP SCH (10:50)
[2020-08-12] MEDS: POTASSIUM CHLORIDE RIDER 10 MEQ/100 ML PREMIX IV PRN ×5 (12:38→19:05)
[2020-08-12] MEDS: MAGNESIUM SULF RIDER 4 GM/100 ML PREMIX IV PRN (22:35)
[2020-08-13] MEDS: CEFEPIME 1,000 MG in SODIUM CHLORIDE 0.9% 100 ML IV SCH ×4 (02:51→21:09)
[2020-08-13 04:37] LABS: Basophils # 0.1 10*3/uL (0.0-0.2); Basophils % 0.7 % (0.0-0.8); Eosinophils # 0.4 10*3/uL (0.0-0.87); Hematocrit 33.6 VOL% (35.7-47.0); Hemoglobin 10.9 GM/DL (12.0-16.0); Immature Granulocytes % 1.1 %; Immature Granulocytes Absolute 0.13 #; Mean Corpuscular HGB Conc 32.4 GM/DL (32-36); Mean Corpuscular Volume 91.6 FL (87-102); Mean Platelet Volume 9.6 FL (9.6-12.0); Monocytes % 7.7 % (1.7-12.7); Neutrophils % 70.5 % (38.7-73.9); Platelet Count 408 T/CUMM (130-400); Red Blood Count 3.67 MC/CUMM (3.8-5.5)
[2020-08-13 04:57] LABS: Albumin 1.7 G/DL (3.4-5.0); Bilirubin,Total 0.4 MG/DL (0.2-1.0); Calcium 8.3 MG/DL (8.5-10.1); Osmolality,Calculated 281.5 MOS/KG (273-304); Potassium 3.4 MMOL/L (3.5-5.1); Total Protein 6.7 G/DL (6.4-8.2)
[2020-08-13] MEDS: SODIUM CHLORIDE 0.9% 1,000 ML IV SCH (06:46)
[2020-08-13] MEDS: PIOGLITAZONE 15 MG TABLET PO SCH (09:42)
[2020-08-13] MEDS: metFORMIN 500 MG TABLET PO SCH ×2 (09:42→17:24)
[2020-08-13] MEDS: DOCUSATE SODIUM 100 MG CAPSULE PO SCH ×2 (09:42→21:09)
[2020-08-13] MEDS: INSULIN LISPRO 100 UNIT/ML SUBCUT SCH ×4 (09:42→21:09)
[2020-08-13] MEDS: carvediloL 3.125 MG TABLET PO SCH ×2 (09:43→21:09)
[2020-08-13] MEDS: INSULIN GLARGINE 100 UNIT/ML SUBCUT SCH (09:43)
[2020-08-13] MEDS: PANTOPRAZOLE 40 MG TABLET PO SCH (09:44)
[2020-08-13] MEDS: HYDROmorphone 2 MG/1 ML VIAL IV PRN (10:24)
[2020-08-13] MEDS: SODIUM HYPOCHLORITE 0.25% IRRIG 473 ML BOTTLE TOP SCH (10:29)
[2020-08-13] MEDS: POTASSIUM CHLORIDE RIDER 10 MEQ/100 ML PREMIX IV PRN ×3 (12:20→14:39)
[2020-08-14] MEDS: HYDROmorphone 2 MG/1 ML VIAL IV PRN ×3 (03:54→21:38)
[2020-08-14] MEDS: CEFEPIME 1,000 MG in SODIUM CHLORIDE 0.9% 100 ML IV SCH ×3 (04:19→17:50)
[2020-08-14 05:15] LABS: Basophils # 0.1 10*3/uL (0.0-0.2); Basophils % 0.8 % (0.0-0.8); Eosinophils # 0.5 10*3/uL (0.0-0.87); Eosinophils % 3.7 % (0.00-10.9); Hematocrit 32.6 VOL% (35.7-47.0); Hemoglobin 10.8 GM/DL (12.0-16.0); Immature Granulocytes % 0.7 %; Lymphocytes # 2.2 10*3/uL (1.4-4.0); Lymphocytes % 15.4 % (21.3-54.2); Mean Corpuscular HGB Conc 33.1 GM/DL (32-36); Mean Corpuscular Volume 91.3 FL (87-102); Mean Platelet Volume 9.7 FL (9.6-12.0); Monocytes % 6.8 % (1.7-12.7); Neutrophils % 72.6 % (38.7-73.9); Platelet Count 440 T/CUMM (130-400); Red Blood Count 3.57 MC/CUMM (3.8-5.5); Red Cell Distribution Width 11.9 % (9.3-17.3); White Blood Count 14.4 T/CUMM (4-12)
[2020-08-14 05:42] LABS: Bilirubin,Total 0.4 MG/DL (0.2-1.0); Calcium 8.4 MG/DL (8.5-10.1); Osmolality,Calculated 276.7 MOS/KG (273-304); Potassium 3.4 MMOL/L (3.5-5.1); Total Protein 6.8 G/DL (6.4-8.2)
[2020-08-14] MEDS: POTASSIUM CHLORIDE RIDER 10 MEQ/100 ML PREMIX IV PRN ×2 (05:54→14:08)
[2020-08-14] MEDS: SODIUM HYPOCHLORITE 0.25% IRRIG 473 ML BOTTLE TOP SCH (08:30)
[2020-08-14] MEDS: INSULIN GLARGINE 100 UNIT/ML SUBCUT SCH (09:21)
[2020-08-14] MEDS: PANTOPRAZOLE 40 MG TABLET PO SCH (09:22)
[2020-08-14] MEDS: DOCUSATE SODIUM 100 MG CAPSULE PO SCH ×2 (09:22→21:29)
[2020-08-14] MEDS: PIOGLITAZONE 15 MG TABLET PO SCH (09:22)
[2020-08-14] MEDS: carvediloL 3.125 MG TABLET PO SCH ×2 (09:22→21:29)
[2020-08-14] MEDS: metFORMIN 500 MG TABLET PO SCH ×2 (09:22→16:21)
[2020-08-14] MEDS: INSULIN LISPRO 100 UNIT/ML SUBCUT SCH ×4 (09:34→21:39)
[2020-08-14] MEDS: ENOXAPARIN 40 MG/0.4 ML SYRINGE SUBCUT SCH (16:20)
[2020-08-15] MEDS: CEFEPIME 1,000 MG in SODIUM CHLORIDE 0.9% 100 ML IV SCH ×2 (01:30→05:47)
[2020-08-15] MEDS: HYDROmorphone 2 MG/1 ML VIAL IV PRN ×3 (04:53→13:24)
[2020-08-15 05:46] LABS: Basophils # 0.1 10*3/uL (0.0-0.2); Basophils % 0.8 % (0.0-0.8); Eosinophils # 0.6 10*3/uL (0.0-0.87); Eosinophils % 4.2 % (0.00-10.9); Hematocrit 33.2 VOL% (35.7-47.0); Immature Granulocytes % 1.4 %; Immature Granulocytes Absolute 0.18 #; Lymphocytes # 2.5 10*3/uL (1.4-4.0); Lymphocytes % 18.7 % (21.3-54.2); Mean Corpuscular HGB Conc 33.1 GM/DL (32-36); Mean Corpuscular Volume 91.5 FL (87-102); Mean Platelet Volume 9.7 FL (9.6-12.0); Monocytes % 6.3 % (1.7-12.7); Neutrophils % 68.6 % (38.7-73.9); Platelet Count 443 T/CUMM (130-400); Red Blood Count 3.63 MC/CUMM (3.8-5.5); Red Cell Distribution Width 11.9 % (9.3-17.3); White Blood Count 13.2 T/CUMM (4-12)
[2020-08-15 06:22] LABS: Albumin 2.1 G/DL (3.4-5.0); Bilirubin,Total 0.5 MG/DL (0.2-1.0); Calcium 8.7 MG/DL (8.5-10.1); Osmolality,Calculated 277.7 MOS/KG (273-304); Potassium 3.6 MMOL/L (3.5-5.1); Total Protein 7.2 G/DL (6.4-8.2)
[2020-08-15] MEDS: INSULIN GLARGINE 100 UNIT/ML SUBCUT SCH (08:26)
[2020-08-15] MEDS: PIOGLITAZONE 15 MG TABLET PO SCH (08:26)
[2020-08-15] MEDS: INSULIN LISPRO 100 UNIT/ML SUBCUT SCH ×4 (08:27→20:30)
[2020-08-15] MEDS: metFORMIN 500 MG TABLET PO SCH ×2 (08:27→16:33)
[2020-08-15] MEDS: SODIUM HYPOCHLORITE 0.25% IRRIG 473 ML BOTTLE TOP SCH (08:27)
[2020-08-15] MEDS: PANTOPRAZOLE 40 MG TABLET PO SCH (08:27)
[2020-08-15] MEDS: DOCUSATE SODIUM 100 MG CAPSULE PO SCH ×2 (08:27→20:29)
[2020-08-15] MEDS: carvediloL 3.125 MG TABLET PO SCH ×2 (08:27→20:29)
[2020-08-15] MEDS: ASPIRIN EC 81 MG TABLET PO SCH (12:24)
[2020-08-15] MEDS: ESCITALOPRAM 10 MG TABLET PO SCH ×2 (12:24→20:29)
[2020-08-15] MEDS: ENOXAPARIN 40 MG/0.4 ML SYRINGE SUBCUT SCH (12:25)
[2020-08-15] MEDS: cefTRIAXone 2,000 MG in SODIUM CHLORIDE 0.9% 100 ML IV SCH (12:45)
[2020-08-15] MEDS ORDERED: MELATONIN 3 MG TABLET PO SCH (21:00)
[2020-08-15] MEDS ORDERED: ATORVASTATIN 20 MG TABLET PO SCH (21:00)
[2020-08-16 04:51] LABS: Basophils # 0.1 10*3/uL (0.0-0.2); Basophils % 0.8 % (0.0-0.8); Eosinophils # 0.6 10*3/uL (0.0-0.87); Eosinophils % 4.3 % (0.00-10.9); Hematocrit 32.8 VOL% (35.7-47.0); Hemoglobin 10.7 GM/DL (12.0-16.0); Immature Granulocytes % 0.8 %; Immature Granulocytes Absolute 0.12 #; Lymphocytes # 2.6 10*3/uL (1.4-4.0); Lymphocytes % 17.9 % (21.3-54.2); Mean Corpuscular HGB Conc 32.6 GM/DL (32-36); Mean Corpuscular Volume 92.1 FL (87-102); Mean Platelet Volume 9.5 FL (9.6-12.0); Monocytes % 5.7 % (1.7-12.7); Neutrophils % 70.5 % (38.7-73.9); Platelet Count 444 T/CUMM (130-400); Red Blood Count 3.56 MC/CUMM (3.8-5.5); Red Cell Distribution Width 12.1 % (9.3-17.3); White Blood Count 14.7 T/CUMM (4-12)
[2020-08-16 05:23] LABS: Alanine Aminotransferase 24 U/L (13-56); Albumin 2.1 G/DL (3.4-5.0); Alkaline Phosphatase 114 U/L (45-117); Aspartate Amino Transferase 23 U/L (0-37); Bilirubin,Total < 0.39 MG/DL (0.2-1.0); Blood Urea Nitrogen 13 MG/DL (7-18); Calcium 8.7 MG/DL (8.5-10.1); Carbon Dioxide 28 MMOL/L (21-32); Estimated Glom Filtration Rate 157 ML/MIN; Glucose 168 MG/DL (74-106); Potassium 3.9 MMOL/L (3.5-5.1); Sodium 136 MMOL/L (136-145); Total Protein 7.2 G/DL (6.4-8.2)
[2020-08-16 05:28] LABS: Risk Ratio 4.68; VLDL Cholesterol 29.4 MG/DL
[2020-08-16] MEDS: INSULIN GLARGINE 100 UNIT/ML SUBCUT SCH (09:09)
[2020-08-16] MEDS: INSULIN LISPRO 100 UNIT/ML SUBCUT SCH ×3 (09:09→16:42)
[2020-08-16] MEDS: carvediloL 3.125 MG TABLET PO SCH (09:12)
[2020-08-16] MEDS: ASPIRIN EC 81 MG TABLET PO SCH (09:12)
[2020-08-16] MEDS: DOCUSATE SODIUM 100 MG CAPSULE PO SCH (09:12)
[2020-08-16] MEDS: metFORMIN 500 MG TABLET PO SCH ×2 (09:12→17:50)
[2020-08-16] MEDS: PANTOPRAZOLE 40 MG TABLET PO SCH (09:13)
[2020-08-16] MEDS: SODIUM HYPOCHLORITE 0.25% IRRIG 473 ML BOTTLE TOP SCH (09:14)
[2020-08-16] MEDS: HYDROmorphone 2 MG/1 ML VIAL IV PRN (11:08)
[2020-08-16] MEDS: cefTRIAXone 2,000 MG in SODIUM CHLORIDE 0.9% 100 ML IV SCH (11:19)
[2020-08-16] MEDS: ENOXAPARIN 40 MG/0.4 ML SYRINGE SUBCUT SCH (15:15)
[2020-08-16 16:55] VITALS: BP 138/74
== END 2020-08-16 17:50 | DRG 240 ==
LOC: N.3E → N.ADMINP
PROVIDERS: ADMIT Family Medicine; ATTEND Family Medicine

== ENCOUNTER 2020-12-28 11:32 | Inpatient (IN) ==
[2020-12-28] MEDS ORDERED: MORPHINE 2 MG/1 ML SYRINGE IV PRN (13:17)
[2020-12-28] MEDS ORDERED: MAGNESIUM SULF RIDER 4 GM/100 ML PREMIX IV PRN (13:17)
[2020-12-28] MEDS ORDERED: NALOXONE 0.4 MG/ML VIAL IV PRN (13:17)
[2020-12-28] MEDS ORDERED: DEXTROSE 50% 25 GM/50 ML VIAL IV PRN (13:17)
[2020-12-28] MEDS ORDERED: GLUCAGON 1 MG VIAL IM PRN (13:17)
[2020-12-28] MEDS ORDERED: VANCOMYCIN INJ 1,000 MG in SODIUM CHLORIDE 0.9% 250 ML IV SCH (13:30)
[2020-12-28] MEDS ORDERED: PIPERACILLIN/TAZOBACTAM 3,375 MG in SODIUM CHLORIDE 0.9% 100 ML IV SCH (13:30)
[2020-12-28] MEDS ORDERED: ENOXAPARIN 40 MG/0.4 ML SYRINGE SUBCUT SCH (14:00)
[2020-12-28] MEDS ORDERED: HYDROmorphone 2 MG/1 ML VIAL IV PRN (14:46)
[2020-12-28] MEDS: ACETAMINOPHEN 325 MG TABLET PO PRN (14:56)
[2020-12-28 15:16] LABS: Basophils # 0.2 10*3/uL (0.0-0.2); Basophils % 0.4 % (0.0-0.8); Eosinophils # 0.1 10*3/uL (0.0-0.87); Eosinophils % 0.2 % (0.00-10.9); Hemoglobin 10.4 GM/DL (12.0-16.0); Immature Granulocytes % 3.9 %; Immature Granulocytes Absolute 1.36 #; Lymphocytes # 2.7 10*3/uL (1.4-4.0); Lymphocytes % 7.6 % (21.3-54.2); Mean Corpuscular HGB Conc 31.5 GM/DL (32-36); Mean Corpuscular Volume 88.9 FL (87-102); Mean Platelet Volume 9.5 FL (9.6-12.0); Monocytes % 7.2 % (1.7-12.7); Neutrophils % 80.7 % (38.7-73.9); Platelet Count 494 T/CUMM (130-400); Red Blood Count 3.71 MC/CUMM (3.8-5.5); Red Cell Distribution Width 13.5 % (9.3-17.3); White Blood Count 35.2 T/CUMM (4-12)
[2020-12-28] MEDS ORDERED: LACTATED RINGERS 1,000 ML IV ONE ×2 (15:16→17:07)
[2020-12-28] MEDS ORDERED: LACTATED RINGERS IV ONE (15:19)
[2020-12-28 15:41] LABS: Albumin 2.1 G/DL (3.4-5.0); Bilirubin,Total 0.9 MG/DL (0.20-1.00); Osmolality,Calculated 268.4 MOS/KG (273-304); Potassium 3.7 MMOL/L (3.5-5.1)
[2020-12-28 15:52] LABS: Band Neutrophils 3 % (0-10); Hypochromasia Slight; Lymphocytes 10 % (20-55); Segmented Neutrophils 77 % (50-85); Total Cells Counted 100
[2020-12-28 15:53] LABS: Platelet Estimate Increased; Polychromasia Slight
[2020-12-28] MEDS: PANTOPRAZOLE 40 MG VIAL IV SCH (15:56)
[2020-12-28] MEDS: CEFEPIME 1,000 MG in SODIUM CHLORIDE 0.9% 100 ML IV SCH ×2 (15:56→20:30)
[2020-12-28] MEDS ORDERED: VANCOMYCIN INJ 1,500 MG in SODIUM CHLORIDE 0.9% 500 ML IV ONE (16:00)
[2020-12-28 16:07] LABS: Barbiturates Screen,Urine Negative (Negative); Benzodiazepines Screen,Urine Negative (Negative); Cannabinoid Screen,Urine Negative (Negative); Opiate Screen,Urine Negative (Negative); Phencyclidine Screen,Urine Negative (Negative)
[2020-12-28 16:12] LABS: Bacteria,Urine Occasional /HPF (Few); Bilirubin,Urine Negative (Negative); Blood, Urine Moderate mg/dL (Negative); Glucose,Urine (UA) >=500 mg/dL (Negative); Ketones,Urine 80 mg/dL (Negative); Mucus,Urine Occasional /LPF (Occasional); Nitrite,Urine Negative (Negative); Protein,Urine 30 MG/DL; RBC,Urine 3 /HPF (0-4); Squamous Epithelial Cell,Urine Occasional /HPF (0-10); Urine Appearance Slightly Hazy (Clear); Urine Color Yellow (Yellow); Urine Specific Gravity 1.027 (1.001-1.035)
[2020-12-28] MEDS ORDERED: MIDAZOLAM 2 MG/2 ML VIAL ONE (16:27)
[2020-12-28] MEDS ORDERED: SUCCINYLCHOLINE 200 MG/10 ML VIAL ONE (16:52)
[2020-12-28] MEDS ORDERED: LIDOCAINE 2% 5 ML VIAL ONE (16:52)
[2020-12-28] MEDS ORDERED: PHENYLEPHRINE 1 MG/10 ML SYRINGE IV ONE (16:52)
[2020-12-28] MEDS ORDERED: propofoL 200 MG/20 ML VIAL IV ONE (16:52)
[2020-12-28] MEDS ORDERED: ROCURONIUM 50 MG/5 ML VIAL IV ONE (16:52)
[2020-12-28] MEDS ORDERED: SEVOFLURANE 1 UNIT/15 MINUTE INH ONE (17:07)
[2020-12-28] MEDS: SODIUM CHLORIDE 0.9% 1,000 ML IV SCH (17:38)
[2020-12-28] MEDS ORDERED: INSULIN REGULAR 100 UNIT/ML SUBCUT SCH (18:00)
[2020-12-28] MEDS: DOCUSATE SODIUM 100 MG CAPSULE PO SCH (20:32)
[2020-12-28] MEDS: INSULIN REGULAR 100 UNIT/ML SUBCUT SCH (20:33)
[2020-12-28] MEDS: GENTAMICIN INJ 100 MG/100 ML PREMIX IV SCH (21:55)
[2020-12-29] MEDS: CEFEPIME 1,000 MG in SODIUM CHLORIDE 0.9% 100 ML IV SCH ×4 (01:09→20:41)
[2020-12-29] MEDS: SODIUM CHLORIDE 0.9% 1,000 ML IV SCH ×3 (01:10→15:13)
[2020-12-29] MEDS: HYDROmorphone 2 MG/1 ML VIAL IV PRN ×4 (01:13→21:01)
[2020-12-29] MEDS: GENTAMICIN INJ 100 MG/100 ML PREMIX IV SCH ×2 (04:55→15:17)
[2020-12-29] MEDS: VANCOMYCIN INJ 1,500 MG in SODIUM CHLORIDE 0.9% 500 ML IV SCH ×2 (05:59→18:31)
[2020-12-29 06:33] LABS: Basophils # 0.2 10*3/uL (0.0-0.2); Basophils % 0.5 % (0.0-0.8); Eosinophils # 0.2 10*3/uL (0.0-0.87); Eosinophils % 0.7 % (0.00-10.9); Hematocrit 30.4 VOL% (35.7-47.0); Hemoglobin 9.6 GM/DL (12.0-16.0); Immature Granulocytes % 3.2 %; Immature Granulocytes Absolute 0.91 #; Lymphocytes # 2.5 10*3/uL (1.4-4.0); Lymphocytes % 8.8 % (21.3-54.2); Mean Corpuscular HGB Conc 31.6 GM/DL (32-36); Mean Corpuscular Volume 91.3 FL (87-102); Mean Platelet Volume 9.7 FL (9.6-12.0); Monocytes % 7.3 % (1.7-12.7); Neutrophils % 79.5 % (38.7-73.9); Platelet Count 450 T/CUMM (130-400); Red Blood Count 3.33 MC/CUMM (3.8-5.5); Red Cell Distribution Width 13.7 % (9.3-17.3); White Blood Count 28.2 T/CUMM (4-12)
[2020-12-29 06:51] LABS: Albumin 1.6 G/DL (3.4-5.0); Bilirubin,Total 1.3 MG/DL (0.20-1.00); Calcium 8.8 MG/DL (8.5-10.1); Osmolality,Calculated 269.2 MOS/KG (273-304); Potassium 3.6 MMOL/L (3.5-5.1); Total Protein 6.7 G/DL (6.4-8.2)
[2020-12-29 07:18] LABS: Band Neutrophils 8 % (0-10); Lymphocytes 4 % (20-55); Segmented Neutrophils 79 % (50-85); Total Cells Counted 100
[2020-12-29 07:19] LABS: Hypochromasia Slight; Platelet Estimate Normal
[2020-12-29] MEDS: INSULIN REGULAR 100 UNIT/ML SUBCUT SCH ×4 (09:27→20:43)
[2020-12-29] MEDS: PANTOPRAZOLE 40 MG VIAL IV SCH (09:28)
[2020-12-29] MEDS: DOCUSATE SODIUM 100 MG CAPSULE PO SCH ×2 (09:29→20:43)
[2020-12-29] MEDS ORDERED: propofoL 200 MG/20 ML VIAL IV ONE (10:48)
[2020-12-29] MEDS ORDERED: ONDANSETRON 4 MG/2 ML VIAL ONE (10:48)
[2020-12-29] MEDS ORDERED: LIDOCAINE 2% 5 ML VIAL ONE (10:48)
[2020-12-29] MEDS ORDERED: SEVOFLURANE 1 UNIT/15 MINUTE INH ONE ×3 (10:48→11:32)
[2020-12-29] MEDS ORDERED: SUCCINYLCHOLINE 200 MG/10 ML VIAL ONE (10:48)
[2020-12-29] MEDS ORDERED: MIDAZOLAM 2 MG/2 ML VIAL ONE (10:49)
[2020-12-29] MEDS ORDERED: fentaNYL 100 MCG/2 ML VIAL ONE (10:49)
[2020-12-29] MEDS ORDERED: PROMETHAZINE INJ 25 MG in SODIUM CHLORIDE 0.9% 50 ML IV PRN (11:50)
[2020-12-29] MEDS ORDERED: diphenhydrAMINE 50 MG/1 ML VIAL IV PRN (11:50)
[2020-12-29] MEDS ORDERED: ONDANSETRON 4 MG/2 ML VIAL IV PRN (11:50)
[2020-12-29] MEDS ORDERED: HYDROmorphone 2 MG/1 ML VIAL IV PRN (11:50)
[2020-12-29] MEDS ORDERED: MEPERIDINE 25 MG/1 ML VIAL IV PRN (11:50)
[2020-12-29] MEDS ORDERED: PHENOL 1.4% THROAT SPRAY 177 ML BOTTLE PO PRN (12:51)
[2020-12-29] MEDS: GENTAMICIN INJ 480 MG in SODIUM CHLORIDE 0.9% 100 ML IV SCH (17:05)
[2020-12-29] MEDS: ESCITALOPRAM 10 MG TABLET PO SCH (20:43)
[2020-12-30] MEDS: CEFEPIME 1,000 MG in SODIUM CHLORIDE 0.9% 100 ML IV SCH ×4 (01:18→21:17)
[2020-12-30] MEDS: SODIUM CHLORIDE 0.9% 1,000 ML IV SCH ×3 (03:24→13:34)
[2020-12-30] MEDS: HYDROmorphone 2 MG/1 ML VIAL IV PRN ×4 (03:26→21:16)
[2020-12-30 04:34] LABS: Basophils # 0.2 10*3/uL (0.0-0.2); Basophils % 0.7 % (0.0-0.8); Eosinophils # 0.4 10*3/uL (0.0-0.87); Eosinophils % 1.3 % (0.00-10.9); Hematocrit 31.5 VOL% (35.7-47.0); Hemoglobin 9.7 GM/DL (12.0-16.0); Immature Granulocytes % 3.8 %; Lymphocytes # 2.1 10*3/uL (1.4-4.0); Lymphocytes % 7.3 % (21.3-54.2); Mean Corpuscular HGB Conc 30.8 GM/DL (32-36); Mean Corpuscular Volume 92.9 FL (87-102); Mean Platelet Volume 9.8 FL (9.6-12.0); Monocytes % 6.4 % (1.7-12.7); Neutrophils % 80.5 % (38.7-73.9); Platelet Count 501 T/CUMM (130-400); Red Blood Count 3.39 MC/CUMM (3.8-5.5); Red Cell Distribution Width 14.2 % (9.3-17.3); White Blood Count 28.8 T/CUMM (4-12)
[2020-12-30] MEDS: VANCOMYCIN INJ 1,500 MG in SODIUM CHLORIDE 0.9% 500 ML IV SCH ×2 (04:40→18:45)
[2020-12-30 05:06] LABS: Band Neutrophils 3 % (0-10); Eosinophils 1 % (0-10); Hypochromasia Slight; Lymphocytes 5 % (20-55); Microcytosis Slight; Platelet Estimate Adequate; Segmented Neutrophils 85 % (50-85); Total Cells Counted 100
[2020-12-30 05:09] LABS: Albumin 1.7 G/DL (3.4-5.0); Osmolality,Calculated 268.2 MOS/KG (273-304); Potassium 3.8 MMOL/L (3.5-5.1); Total Protein 7.2 G/DL (6.4-8.2)
[2020-12-30] MEDS: PANTOPRAZOLE 40 MG VIAL IV SCH (09:16)
[2020-12-30] MEDS: DOCUSATE SODIUM 100 MG CAPSULE PO SCH ×2 (09:17→21:08)
[2020-12-30] MEDS: ESCITALOPRAM 10 MG TABLET PO SCH ×2 (09:17→21:08)
[2020-12-30] MEDS: INSULIN REGULAR 100 UNIT/ML SUBCUT SCH ×4 (09:17→21:16)
[2020-12-30] MEDS: GENTAMICIN INJ 480 MG in SODIUM CHLORIDE 0.9% 100 ML IV SCH (16:36)
[2020-12-31] MEDS: SODIUM CHLORIDE 0.9% 1,000 ML IV SCH ×3 (01:56→14:14)
[2020-12-31] MEDS: CEFEPIME 1,000 MG in SODIUM CHLORIDE 0.9% 100 ML IV SCH ×4 (02:08→20:51)
[2020-12-31] MEDS: HYDROmorphone 2 MG/1 ML VIAL IV PRN ×6 (02:13→21:07)
[2020-12-31] MEDS: VANCOMYCIN INJ 1,500 MG in SODIUM CHLORIDE 0.9% 500 ML IV SCH ×2 (04:26→17:05)
[2020-12-31] MEDS ORDERED: ONDANSETRON 4 MG/2 ML VIAL ONE (05:03)
[2020-12-31] MEDS ORDERED: MIDAZOLAM 2 MG/2 ML VIAL ONE (05:03)
[2020-12-31] MEDS ORDERED: LIDOCAINE 2% 5 ML VIAL ONE (05:03)
[2020-12-31] MEDS ORDERED: SEVOFLURANE 1 UNIT/15 MINUTE INH ONE ×4 (05:03→06:14)
[2020-12-31] MEDS ORDERED: propofoL 200 MG/20 ML VIAL IV ONE (05:03)
[2020-12-31] MEDS ORDERED: fentaNYL 100 MCG/2 ML VIAL ONE (05:04)
[2020-12-31 05:39] LABS: Basophils # 0.1 10*3/uL (0.0-0.2); Basophils % 0.5 % (0.0-0.8); Eosinophils # 0.4 10*3/uL (0.0-0.87); Hematocrit 29.1 VOL% (35.7-47.0); Hemoglobin 9.1 GM/DL (12.0-16.0); Immature Granulocytes % 4.7 %; Immature Granulocytes Absolute 1.03 #; Lymphocytes % 9.1 % (21.3-54.2); Mean Corpuscular HGB Conc 31.3 GM/DL (32-36); Mean Corpuscular Volume 90.1 FL (87-102); Monocytes % 5.7 % (1.7-12.7); Platelet Count 490 T/CUMM (130-400); Red Blood Count 3.23 MC/CUMM (3.8-5.5); Red Cell Distribution Width 14.3 % (9.3-17.3); White Blood Count 21.8 T/CUMM (4-12)
[2020-12-31] MEDS ORDERED: BUPIVACAINE MPF 0.25% 30 ML VIAL ONE (05:43)
[2020-12-31] MEDS ORDERED: LIDOCAINE 1% 50 ML VIAL ONE (05:43)
[2020-12-31 06:11] LABS: Albumin 1.6 G/DL (3.4-5.0); Bilirubin,Total 0.5 MG/DL (0.20-1.00); Calcium 8.7 MG/DL (8.5-10.1); Osmolality,Calculated 269.4 MOS/KG (273-304); Potassium 3.7 MMOL/L (3.5-5.1); Total Protein 7.2 G/DL (6.4-8.2)
[2020-12-31] MEDS ORDERED: ONDANSETRON 4 MG/2 ML VIAL IV PRN (06:56)
[2020-12-31] MEDS: INSULIN REGULAR 100 UNIT/ML SUBCUT SCH ×4 (09:04→20:53)
[2020-12-31] MEDS: PANTOPRAZOLE 40 MG VIAL IV SCH (09:05)
[2020-12-31] MEDS: DOCUSATE SODIUM 100 MG CAPSULE PO SCH ×2 (09:05→20:53)
[2020-12-31] MEDS: ESCITALOPRAM 10 MG TABLET PO SCH ×2 (09:05→20:53)
[2020-12-31] MEDS: GENTAMICIN INJ 480 MG in SODIUM CHLORIDE 0.9% 100 ML IV SCH (16:19)
[2021-01-01] MEDS: CEFEPIME 1,000 MG in SODIUM CHLORIDE 0.9% 100 ML IV SCH ×4 (01:32→21:11)
[2021-01-01] MEDS: SODIUM CHLORIDE 0.9% 1,000 ML IV SCH ×3 (01:34→18:59)
[2021-01-01] MEDS: HYDROmorphone 2 MG/1 ML VIAL IV PRN ×5 (04:41→21:52)
[2021-01-01] MEDS: VANCOMYCIN INJ 1,500 MG in SODIUM CHLORIDE 0.9% 500 ML IV SCH ×2 (04:46→17:56)
[2021-01-01 06:19] LABS: Albumin 1.5 G/DL (3.4-5.0); Calcium 8.4 MG/DL (8.5-10.1); Osmolality,Calculated 278.7 MOS/KG (273-304); Potassium 3.2 MMOL/L (3.5-5.1); Total Protein 7.1 G/DL (6.4-8.2)
[2021-01-01 08:24] LABS: Basophils # 0.1 10*3/uL (0.0-0.2); Basophils % 0.8 % (0.0-0.8); Eosinophils # 0.4 10*3/uL (0.0-0.87); Eosinophils % 2.3 % (0.00-10.9); Hematocrit 27.4 VOL% (35.7-47.0); Hemoglobin 8.9 GM/DL (12.0-16.0); Immature Granulocytes % 4.6 %; Lymphocytes # 1.7 10*3/uL (1.4-4.0); Lymphocytes % 9.7 % (21.3-54.2); Mean Corpuscular HGB Conc 32.5 GM/DL (32-36); Mean Corpuscular Volume 89.8 FL (87-102); Monocytes % 6.3 % (1.7-12.7); Neutrophils % 76.3 % (38.7-73.9); Platelet Count 507 T/CUMM (130-400); Red Blood Count 3.05 MC/CUMM (3.8-5.5); Red Cell Distribution Width 14.1 % (9.3-17.3); White Blood Count 17.3 T/CUMM (4-12)
[2021-01-01] MEDS ORDERED: ALBUTEROL/IPRATROPIUM 3 ML NEB RESP TX PRN (08:43)
[2021-01-01] MEDS ORDERED: POLYETHYLENE GLYCOL POWDER 17 GM PACK PO PRN (08:47)
[2021-01-01] MEDS: INSULIN REGULAR 100 UNIT/ML SUBCUT SCH ×4 (08:48→21:13)
[2021-01-01] MEDS: DOCUSATE SODIUM 100 MG CAPSULE PO SCH ×2 (08:49→21:12)
[2021-01-01] MEDS: PANTOPRAZOLE 40 MG VIAL IV SCH (08:49)
[2021-01-01] MEDS: ESCITALOPRAM 10 MG TABLET PO SCH ×2 (08:49→21:13)
[2021-01-01 09:18] LABS: Band Neutrophils 1 % (0-10); Eosinophils 1 % (0-10); Hypochromasia 1+; Lymphocytes 10 % (20-55); Microcytosis 1+; Platelet Estimate Increased; Segmented Neutrophils 79 % (50-85); Total Cells Counted 100
[2021-01-01] MEDS: amLODIPine 5 MG TABLET PO SCH (12:34)
[2021-01-01] MEDS: SODIUM HYPOCHLORITE 0.25% IRRIG 473 ML BOTTLE TOP SCH (14:32)
[2021-01-01] MEDS: GENTAMICIN INJ 480 MG in SODIUM CHLORIDE 0.9% 100 ML IV SCH (16:12)
[2021-01-01] MEDS: carvediloL 3.125 MG TABLET PO SCH (17:56)
[2021-01-01] MEDS: ATORVASTATIN 20 MG TABLET PO SCH (21:13)
[2021-01-01] MEDS: GABAPENTIN 100 MG CAPSULE PO SCH (21:13)
[2021-01-02] MEDS: CEFEPIME 1,000 MG in SODIUM CHLORIDE 0.9% 100 ML IV SCH ×3 (04:05→14:21)
[2021-01-02] MEDS: VANCOMYCIN INJ 1,500 MG in SODIUM CHLORIDE 0.9% 500 ML IV SCH (05:38)
[2021-01-02 05:39] LABS: Basophils # 0.1 10*3/uL (0.0-0.2); Basophils % 0.7 % (0.0-0.8); Eosinophils # 0.4 10*3/uL (0.0-0.87); Eosinophils % 2.1 % (0.00-10.9); Hematocrit 27.1 VOL% (35.7-47.0); Hemoglobin 8.8 GM/DL (12.0-16.0); Immature Granulocytes % 5.4 %; Immature Granulocytes Absolute 0.96 #; Lymphocytes # 1.7 10*3/uL (1.4-4.0); Lymphocytes % 9.4 % (21.3-54.2); Mean Corpuscular HGB Conc 32.5 GM/DL (32-36); Mean Corpuscular Volume 88.3 FL (87-102); Mean Platelet Volume 9.2 FL (9.6-12.0); Neutrophils % 75.4 % (38.7-73.9); Platelet Count 478 T/CUMM (130-400); Red Blood Count 3.07 MC/CUMM (3.8-5.5); Red Cell Distribution Width 14.1 % (9.3-17.3); White Blood Count 17.7 T/CUMM (4-12)
[2021-01-02 05:58] LABS: Albumin 1.5 G/DL (3.4-5.0); Bilirubin,Total 0.5 MG/DL (0.20-1.00); Calcium 8.7 MG/DL (8.5-10.1); Osmolality,Calculated 275.1 MOS/KG (273-304); Total Protein 7.1 G/DL (6.4-8.2)
[2021-01-02 06:06] LABS: Band Neutrophils 2 % (0-10); Eosinophils 1 % (0-10); Hypochromasia 1+; Lymphocytes 8 % (20-55); Microcytosis 1+; Platelet Estimate Adequate; Segmented Neutrophils 82 % (50-85); Total Cells Counted 100
[2021-01-02] MEDS: INSULIN REGULAR 100 UNIT/ML SUBCUT SCH ×4 (07:00→21:53)
[2021-01-02] MEDS: ONDANSETRON 4 MG/2 ML VIAL IV PRN (07:35)
[2021-01-02] MEDS: HYDROmorphone 2 MG/1 ML VIAL IV PRN ×2 (07:36→17:31)
[2021-01-02] MEDS ORDERED: ESCITALOPRAM 10 MG TABLET PO SCH (09:00)
[2021-01-02] MEDS ORDERED: LIDOCAINE 1% 50 ML VIAL ONE ×2 (09:49→10:27)
[2021-01-02] MEDS ORDERED: LACTATED RINGERS 1,000 ML IV SCH (10:30)
[2021-01-02] MEDS ORDERED: MIDAZOLAM 2 MG/2 ML VIAL ONE (10:45)
[2021-01-02] MEDS ORDERED: propofoL 200 MG/20 ML VIAL IV ONE (10:45)
[2021-01-02] MEDS ORDERED: SEVOFLURANE 1 UNIT/15 MINUTE INH ONE (10:45)
[2021-01-02] MEDS ORDERED: LIDOCAINE 2% 5 ML VIAL ONE (10:45)
[2021-01-02] MEDS ORDERED: fentaNYL 100 MCG/2 ML VIAL ONE (10:45)
[2021-01-02] MEDS ORDERED: KETAMINE 500 MG/10 ML VIAL ONE (10:56)
[2021-01-02] MEDS: MEPERIDINE 25 MG/1 ML VIAL IV PRN ×2 (11:40→11:50)
[2021-01-02] MEDS ORDERED: ONDANSETRON 4 MG/2 ML VIAL IV PRN (11:51)
[2021-01-02] MEDS ORDERED: PROMETHAZINE INJ 25 MG in SODIUM CHLORIDE 0.9% 50 ML IV PRN (11:51)
[2021-01-02] MEDS: SODIUM HYPOCHLORITE 0.25% IRRIG 473 ML BOTTLE TOP SCH (12:37)
[2021-01-02] MEDS: SODIUM CHLORIDE 0.9% 1,000 ML IV SCH (12:38)
[2021-01-02] MEDS: FLUTICASONE 50 MCG NASAL SPRAY 16 GM BOTTLE BOTH NARES SCH ×2 (13:33→21:52)
[2021-01-02] MEDS: PANTOPRAZOLE 40 MG VIAL IV SCH (13:34)
[2021-01-02] MEDS: amLODIPine 5 MG TABLET PO SCH (13:34)
[2021-01-02] MEDS: carvediloL 3.125 MG TABLET PO SCH ×2 (13:34→16:04)
[2021-01-02] MEDS: GABAPENTIN 100 MG CAPSULE PO SCH ×2 (13:34→21:52)
[2021-01-02] MEDS: lisinopriL 10 MG TABLET PO SCH (13:34)
[2021-01-02] MEDS: DOCUSATE SODIUM 100 MG CAPSULE PO SCH ×2 (13:34→21:52)
[2021-01-02] MEDS: CETIRIZINE 10 MG TABLET PO SCH (13:35)
[2021-01-02] MEDS: ESCITALOPRAM 10 MG TABLET PO SCH ×2 (13:35→21:53)
[2021-01-02] MEDS: CIPROFLOXACIN INJ 400 MG/200 ML PREMIX IV SCH (16:06)
[2021-01-02] MEDS: ATORVASTATIN 20 MG TABLET PO SCH (21:52)
[2021-01-03] MEDS: CIPROFLOXACIN INJ 400 MG/200 ML PREMIX IV SCH ×2 (04:18→16:34)
[2021-01-03 06:28] LABS: Basophils # 0.1 10*3/uL (0.0-0.2); Basophils % 0.4 % (0.0-0.8); Eosinophils # 0.4 10*3/uL (0.0-0.87); Eosinophils % 2.4 % (0.00-10.9); Hemoglobin 8.1 GM/DL (12.0-16.0); Immature Granulocytes % 5.6 %; Immature Granulocytes Absolute 0.95 #; Lymphocytes # 2.1 10*3/uL (1.4-4.0); Lymphocytes % 12.2 % (21.3-54.2); Mean Corpuscular HGB Conc 31.2 GM/DL (32-36); Mean Corpuscular Volume 89.3 FL (87-102); Mean Platelet Volume 9.7 FL (9.6-12.0); Monocytes % 8.6 % (1.7-12.7); Neutrophils % 70.8 % (38.7-73.9); Platelet Count 437 T/CUMM (130-400); Red Blood Count 2.91 MC/CUMM (3.8-5.5); Red Cell Distribution Width 14.2 % (9.3-17.3)
[2021-01-03 06:39] LABS: Albumin 1.5 G/DL (3.4-5.0); Bilirubin,Total 0.7 MG/DL (0.20-1.00); Calcium 8.2 MG/DL (8.5-10.1); Osmolality,Calculated 276.1 MOS/KG (273-304); Potassium 2.8 MMOL/L (3.5-5.1)
[2021-01-03 06:55] LABS: Band Neutrophils 8 % (0-10); Eosinophils 3 % (0-10); Hypochromasia 1+; Lymphocytes 14 % (20-55); Metamyelocytes 1 %; Myelocytes 2 %; Segmented Neutrophils 66 % (50-85); Total Cells Counted 100
[2021-01-03 06:56] LABS: Microcytosis 1+; Polychromasia Slight
[2021-01-03 06:57] LABS: Platelet Estimate Increased
[2021-01-03] MEDS: HYDROmorphone 2 MG/1 ML VIAL IV PRN ×3 (08:11→23:17)
[2021-01-03] MEDS: CETIRIZINE 10 MG TABLET PO SCH (08:12)
[2021-01-03] MEDS: INSULIN REGULAR 100 UNIT/ML SUBCUT SCH ×4 (08:12→22:17)
[2021-01-03] MEDS: amLODIPine 5 MG TABLET PO SCH (08:12)
[2021-01-03] MEDS: PANTOPRAZOLE 40 MG VIAL IV SCH (08:13)
[2021-01-03] MEDS: lisinopriL 10 MG TABLET PO SCH (08:13)
[2021-01-03] MEDS: ESCITALOPRAM 10 MG TABLET PO SCH ×2 (08:13→22:18)
[2021-01-03] MEDS: carvediloL 3.125 MG TABLET PO SCH ×2 (08:13→17:16)
[2021-01-03] MEDS: GABAPENTIN 100 MG CAPSULE PO SCH ×2 (08:13→22:17)
[2021-01-03] MEDS: SODIUM CHLORIDE 0.9% 1,000 ML IV SCH (08:25)
[2021-01-03] MEDS: DOCUSATE SODIUM 100 MG CAPSULE PO SCH ×2 (08:34→22:17)
[2021-01-03] MEDS: FLUTICASONE 50 MCG NASAL SPRAY 16 GM BOTTLE BOTH NARES SCH ×2 (08:34→22:17)
[2021-01-03] MEDS: SODIUM HYPOCHLORITE 0.25% IRRIG 473 ML BOTTLE TOP SCH (10:34)
[2021-01-03] MEDS ORDERED: TOBRAMYCIN INJ 300 MG in SODIUM CHLORIDE 0.9% 100 ML IV SCH (11:00)
[2021-01-03] MEDS: TOBRAMYCIN INJ 480 MG in SODIUM CHLORIDE 0.9% 100 ML IV SCH (13:50)
[2021-01-03] MEDS: POTASSIUM CHLORIDE RIDER 10 MEQ/100 ML PREMIX IV PRN ×3 (14:11→16:34)
[2021-01-03] MEDS: ONDANSETRON 4 MG/2 ML VIAL IV PRN (16:33)
[2021-01-03] MEDS ORDERED: LIDOCAINE 1% 50 ML VIAL ONE (16:45)
[2021-01-03] MEDS ORDERED: LACTATED RINGERS 1,000 ML IV ONE ×2 (17:03→18:15)
[2021-01-03] MEDS ORDERED: fentaNYL 100 MCG/2 ML VIAL ONE ×2 (18:13→18:59)
[2021-01-03] MEDS ORDERED: MIDAZOLAM 2 MG/2 ML VIAL ONE (18:13)
[2021-01-03] MEDS ORDERED: LIDOCAINE 2% 5 ML VIAL ONE (18:13)
[2021-01-03] MEDS ORDERED: propofoL 200 MG/20 ML VIAL IV ONE ×2 (18:13→18:44)
[2021-01-03] MEDS ORDERED: ALBUMIN 5% 12.5 GM/250 ML VIAL IV ONE (18:22)
[2021-01-03] MEDS ORDERED: KETAMINE 500 MG/10 ML VIAL ONE (18:27)
[2021-01-03] MEDS: ATORVASTATIN 20 MG TABLET PO SCH (22:16)
[2021-01-04] MEDS: HYDROmorphone 2 MG/1 ML VIAL IV PRN ×5 (03:23→22:00)
[2021-01-04] MEDS: SODIUM CHLORIDE 0.9% 1,000 ML IV SCH ×2 (03:24→13:08)
[2021-01-04] MEDS: CIPROFLOXACIN INJ 400 MG/200 ML PREMIX IV SCH ×2 (03:25→15:04)
[2021-01-04 06:03] LABS: Basophils # 0.1 10*3/uL (0.0-0.2); Basophils % 0.4 % (0.0-0.8); Eosinophils # 0.5 10*3/uL (0.0-0.87); Eosinophils % 2.5 % (0.00-10.9); Hematocrit 24.9 VOL% (35.7-47.0); Hemoglobin 7.8 GM/DL (12.0-16.0); Immature Granulocytes % 4.5 %; Lymphocytes # 2.1 10*3/uL (1.4-4.0); Lymphocytes % 11.8 % (21.3-54.2); Mean Corpuscular HGB Conc 31.3 GM/DL (32-36); Mean Corpuscular Volume 89.6 FL (87-102); Mean Platelet Volume 9.5 FL (9.6-12.0); Neutrophils % 70.8 % (38.7-73.9); Platelet Count 449 T/CUMM (130-400); Red Blood Count 2.78 MC/CUMM (3.8-5.5); Red Cell Distribution Width 14.3 % (9.3-17.3); White Blood Count 17.9 T/CUMM (4-12)
[2021-01-04 06:25] LABS: Albumin 1.7 G/DL (3.4-5.0); Bilirubin,Total 0.5 MG/DL (0.20-1.00); Calcium 8.1 MG/DL (8.5-10.1); Potassium 3.2 MMOL/L (3.5-5.1); Total Protein 7.1 G/DL (6.4-8.2)
[2021-01-04 06:39] LABS: Band Neutrophils 4 % (0-10); Eosinophils 2 % (0-10); Lymphocytes 11 % (20-55); Platelet Estimate Increased; Segmented Neutrophils 78 % (50-85); Total Cells Counted 100
[2021-01-04 06:40] LABS: Hypochromasia Slight
[2021-01-04] MEDS: DOCUSATE SODIUM 100 MG CAPSULE PO SCH ×2 (08:09→21:59)
[2021-01-04] MEDS: GABAPENTIN 100 MG CAPSULE PO SCH ×2 (08:09→21:59)
[2021-01-04] MEDS: ESCITALOPRAM 10 MG TABLET PO SCH ×2 (08:09→21:59)
[2021-01-04] MEDS: CETIRIZINE 10 MG TABLET PO SCH (08:09)
[2021-01-04] MEDS: lisinopriL 10 MG TABLET PO SCH (08:09)
[2021-01-04] MEDS: carvediloL 3.125 MG TABLET PO SCH ×2 (08:09→16:32)
[2021-01-04] MEDS: amLODIPine 5 MG TABLET PO SCH (08:09)
[2021-01-04] MEDS: PANTOPRAZOLE 40 MG VIAL IV SCH (08:10)
[2021-01-04] MEDS: INSULIN REGULAR 100 UNIT/ML SUBCUT SCH ×4 (08:10→22:44)
[2021-01-04] MEDS: SODIUM HYPOCHLORITE 0.25% IRRIG 473 ML BOTTLE TOP SCH (08:11)
[2021-01-04] MEDS: FLUTICASONE 50 MCG NASAL SPRAY 16 GM BOTTLE BOTH NARES SCH ×2 (08:11→22:11)
[2021-01-04] MEDS: TOBRAMYCIN INJ 480 MG in SODIUM CHLORIDE 0.9% 100 ML IV SCH (11:34)
[2021-01-04 12:08] LABS: Hematocrit 25.2 VOL% (35.7-47.0); Hemoglobin 7.9 GM/DL (12.0-16.0)
[2021-01-04] MEDS: ONDANSETRON 4 MG/2 ML VIAL IV PRN (21:59)
[2021-01-04] MEDS: ATORVASTATIN 20 MG TABLET PO SCH (21:59)
[2021-01-05] MEDS: ONDANSETRON 4 MG/2 ML VIAL IV PRN ×3 (02:37→22:25)
[2021-01-05] MEDS: HYDROmorphone 2 MG/1 ML VIAL IV PRN ×6 (02:38→22:08)
[2021-01-05] MEDS: CIPROFLOXACIN INJ 400 MG/200 ML PREMIX IV SCH ×2 (04:49→17:31)
[2021-01-05] MEDS: SODIUM CHLORIDE 0.9% 1,000 ML IV SCH (04:50)
[2021-01-05 05:31] LABS: Basophils # 0.1 10*3/uL (0.0-0.2); Basophils % 0.6 % (0.0-0.8); Eosinophils # 0.5 10*3/uL (0.0-0.87); Eosinophils % 2.5 % (0.00-10.9); Hematocrit 27.1 VOL% (35.7-47.0); Hemoglobin 8.6 GM/DL (12.0-16.0); Immature Granulocytes % 4.6 %; Immature Granulocytes Absolute 0.82 #; Lymphocytes # 2.1 10*3/uL (1.4-4.0); Lymphocytes % 12.1 % (21.3-54.2); Mean Corpuscular HGB Conc 31.7 GM/DL (32-36); Mean Platelet Volume 9.6 FL (9.6-12.0); Monocytes % 10.9 % (1.7-12.7); Neutrophils % 69.3 % (38.7-73.9); Platelet Count 455 T/CUMM (130-400); Red Blood Count 3.01 MC/CUMM (3.8-5.5); Red Cell Distribution Width 14.2 % (9.3-17.3); White Blood Count 17.7 T/CUMM (4-12)
[2021-01-05 05:55] LABS: Albumin 1.8 G/DL (3.4-5.0); Calcium 8.4 MG/DL (8.5-10.1); Osmolality,Calculated 271.4 MOS/KG (273-304); Potassium 2.9 MMOL/L (3.5-5.1); Total Protein 7.4 G/DL (6.4-8.2)
[2021-01-05 05:57] LABS: Band Neutrophils 1 % (0-10); Eosinophils 1 % (0-10); Hypochromasia Slight; Lymphocytes 8 % (20-55); Platelet Estimate Increased; Segmented Neutrophils 79 % (50-85); Total Cells Counted 100
[2021-01-05] MEDS: MAGNESIUM SULF RIDER 2 GM/50 ML PREMIX IV PRN (08:33)
[2021-01-05] MEDS: GABAPENTIN 100 MG CAPSULE PO SCH (08:37)
[2021-01-05] MEDS: DOCUSATE SODIUM 100 MG CAPSULE PO SCH ×2 (08:37→22:09)
[2021-01-05] MEDS: CETIRIZINE 10 MG TABLET PO SCH (08:37)
[2021-01-05] MEDS: POTASSIUM CHLORIDE 20 MEQ TABLET PO PRN ×2 (08:38→16:42)
[2021-01-05] MEDS: FLUTICASONE 50 MCG NASAL SPRAY 16 GM BOTTLE BOTH NARES SCH ×2 (08:38→22:10)
[2021-01-05] MEDS: amLODIPine 5 MG TABLET PO SCH (08:38)
[2021-01-05] MEDS: lisinopriL 10 MG TABLET PO SCH (08:38)
[2021-01-05] MEDS: ESCITALOPRAM 10 MG TABLET PO SCH ×2 (08:38→22:09)
[2021-01-05] MEDS: carvediloL 3.125 MG TABLET PO SCH ×2 (08:38→16:43)
[2021-01-05] MEDS: PANTOPRAZOLE 40 MG VIAL IV SCH (08:41)
[2021-01-05] MEDS: INSULIN REGULAR 100 UNIT/ML SUBCUT SCH ×4 (08:45→22:10)
[2021-01-05] MEDS: SODIUM HYPOCHLORITE 0.25% IRRIG 473 ML BOTTLE TOP SCH (10:26)
[2021-01-05] MEDS: CELECOXIB 200 MG CAPSULE PO SCH (15:20)
[2021-01-05] MEDS: metroNIDAZOLE INJ 500 MG/100 ML PREMIX IV SCH (15:52)
[2021-01-05] MEDS: ATORVASTATIN 20 MG TABLET PO SCH (22:09)
[2021-01-05] MEDS: GABAPENTIN 300 MG CAPSULE PO SCH (22:09)
[2021-01-06] MEDS: metroNIDAZOLE INJ 500 MG/100 ML PREMIX IV SCH ×4 (00:45→22:24)
[2021-01-06] MEDS: HYDROmorphone 2 MG/1 ML VIAL IV PRN ×7 (02:01→22:36)
[2021-01-06] MEDS: CIPROFLOXACIN INJ 400 MG/200 ML PREMIX IV SCH ×2 (05:25→16:39)
[2021-01-06 06:02] LABS: Basophils # 0.1 10*3/uL (0.0-0.2); Basophils % 0.7 % (0.0-0.8); Eosinophils # 0.4 10*3/uL (0.0-0.87); Eosinophils % 2.7 % (0.00-10.9); Hemoglobin 8.2 GM/DL (12.0-16.0); Immature Granulocytes % 3.2 %; Immature Granulocytes Absolute 0.49 #; Lymphocytes # 2.3 10*3/uL (1.4-4.0); Lymphocytes % 14.8 % (21.3-54.2); Mean Corpuscular HGB Conc 30.4 GM/DL (32-36); Mean Platelet Volume 9.2 FL (9.6-12.0); Neutrophils % 67.6 % (38.7-73.9); Platelet Count 461 T/CUMM (130-400); Red Cell Distribution Width 14.1 % (9.3-17.3); White Blood Count 15.3 T/CUMM (4-12)
[2021-01-06 06:23] LABS: Albumin 1.8 G/DL (3.4-5.0); Bilirubin,Total 0.8 MG/DL (0.20-1.00); Calcium 8.4 MG/DL (8.5-10.1); Osmolality,Calculated 275.2 MOS/KG (273-304); Potassium 3.3 MMOL/L (3.5-5.1); Total Protein 7.3 G/DL (6.4-8.2)
[2021-01-06] MEDS: DOCUSATE SODIUM 100 MG CAPSULE PO SCH ×2 (08:54→20:43)
[2021-01-06] MEDS: amLODIPine 5 MG TABLET PO SCH (08:55)
[2021-01-06] MEDS: lisinopriL 10 MG TABLET PO SCH (08:55)
[2021-01-06] MEDS: carvediloL 3.125 MG TABLET PO SCH ×2 (08:55→17:57)
[2021-01-06] MEDS: CETIRIZINE 10 MG TABLET PO SCH (08:55)
[2021-01-06] MEDS: GABAPENTIN 300 MG CAPSULE PO SCH ×2 (08:55→20:43)
[2021-01-06] MEDS: ESCITALOPRAM 10 MG TABLET PO SCH ×2 (08:55→20:43)
[2021-01-06] MEDS: CELECOXIB 200 MG CAPSULE PO SCH (08:55)
[2021-01-06] MEDS: INSULIN REGULAR 100 UNIT/ML SUBCUT SCH ×4 (08:58→20:44)
[2021-01-06] MEDS: PANTOPRAZOLE 40 MG VIAL IV SCH (10:25)
[2021-01-06] MEDS: FLUTICASONE 50 MCG NASAL SPRAY 16 GM BOTTLE BOTH NARES SCH ×2 (11:24→20:43)
[2021-01-06] MEDS: SODIUM HYPOCHLORITE 0.25% IRRIG 473 ML BOTTLE TOP SCH (11:24)
[2021-01-06] MEDS: POTASSIUM CHLORIDE 20 MEQ TABLET PO PRN ×3 (12:57→19:01)
[2021-01-06] MEDS: SODIUM CHLORIDE 0.9% 1,000 ML IV SCH ×2 (15:29→21:17)
[2021-01-06] MEDS: ATORVASTATIN 20 MG TABLET PO SCH (20:43)
[2021-01-07] MEDS: CIPROFLOXACIN INJ 400 MG/200 ML PREMIX IV SCH ×2 (03:16→17:05)
[2021-01-07] MEDS: HYDROmorphone 2 MG/1 ML VIAL IV PRN ×6 (03:20→21:55)
[2021-01-07 05:10] LABS: Basophils # 0.1 10*3/uL (0.0-0.2); Basophils % 0.6 % (0.0-0.8); Eosinophils # 0.3 10*3/uL (0.0-0.87); Hematocrit 25.9 VOL% (35.7-47.0); Immature Granulocytes % 2.8 %; Immature Granulocytes Absolute 0.45 #; Lymphocytes # 2.2 10*3/uL (1.4-4.0); Lymphocytes % 13.6 % (21.3-54.2); Mean Corpuscular HGB Conc 30.9 GM/DL (32-36); Mean Corpuscular Volume 88.7 FL (87-102); Mean Platelet Volume 9.5 FL (9.6-12.0); Monocytes % 10.2 % (1.7-12.7); Neutrophils % 70.8 % (38.7-73.9); Platelet Count 458 T/CUMM (130-400); Red Blood Count 2.92 MC/CUMM (3.8-5.5); Red Cell Distribution Width 14.2 % (9.3-17.3); White Blood Count 16.3 T/CUMM (4-12)
[2021-01-07 05:33] LABS: Albumin 1.7 G/DL (3.4-5.0); Bilirubin,Total 0.6 MG/DL (0.20-1.00); Calcium 8.3 MG/DL (8.5-10.1); Osmolality,Calculated 273.4 MOS/KG (273-304); Potassium 3.2 MMOL/L (3.5-5.1); Total Protein 7.1 G/DL (6.4-8.2)
[2021-01-07] MEDS: metroNIDAZOLE INJ 500 MG/100 ML PREMIX IV SCH ×3 (07:24→23:57)
[2021-01-07] MEDS: GABAPENTIN 300 MG CAPSULE PO SCH ×2 (10:28→20:03)
[2021-01-07] MEDS: DOCUSATE SODIUM 100 MG CAPSULE PO SCH ×2 (10:28→20:03)
[2021-01-07] MEDS: amLODIPine 5 MG TABLET PO SCH (10:29)
[2021-01-07] MEDS: POTASSIUM CHLORIDE 20 MEQ TABLET PO PRN ×3 (10:29→17:07)
[2021-01-07] MEDS: ESCITALOPRAM 10 MG TABLET PO SCH ×2 (10:29→20:03)
[2021-01-07] MEDS: CETIRIZINE 10 MG TABLET PO SCH (10:29)
[2021-01-07] MEDS: lisinopriL 10 MG TABLET PO SCH (10:29)
[2021-01-07] MEDS: CELECOXIB 200 MG CAPSULE PO SCH (10:29)
[2021-01-07] MEDS: PANTOPRAZOLE 40 MG VIAL IV SCH (10:30)
[2021-01-07] MEDS: carvediloL 3.125 MG TABLET PO SCH ×2 (10:30→17:05)
[2021-01-07] MEDS: INSULIN REGULAR 100 UNIT/ML SUBCUT SCH ×4 (10:32→20:06)
[2021-01-07] MEDS: SODIUM HYPOCHLORITE 0.25% IRRIG 473 ML BOTTLE TOP SCH (11:29)
[2021-01-07] MEDS: SODIUM CHLORIDE 0.9% 1,000 ML IV SCH (11:29)
[2021-01-07] MEDS: FLUTICASONE 50 MCG NASAL SPRAY 16 GM BOTTLE BOTH NARES SCH ×2 (11:29→20:29)
[2021-01-07] MEDS: ATORVASTATIN 20 MG TABLET PO SCH (20:03)
[2021-01-08] MEDS: HYDROmorphone 2 MG/1 ML VIAL IV PRN ×6 (00:48→21:09)
[2021-01-08] MEDS: CIPROFLOXACIN INJ 400 MG/200 ML PREMIX IV SCH ×2 (03:49→16:09)
[2021-01-08 05:42] LABS: Albumin 1.7 G/DL (3.4-5.0); Bilirubin,Total 0.6 MG/DL (0.20-1.00); Calcium 8.1 MG/DL (8.5-10.1); Potassium 3.6 MMOL/L (3.5-5.1); Total Protein 7.1 G/DL (6.4-8.2)
[2021-01-08] MEDS: metroNIDAZOLE INJ 500 MG/100 ML PREMIX IV SCH (06:19)
[2021-01-08] MEDS: INSULIN REGULAR 100 UNIT/ML SUBCUT SCH ×4 (08:34→20:47)
[2021-01-08] MEDS: DOCUSATE SODIUM 100 MG CAPSULE PO SCH ×2 (08:34→20:49)
[2021-01-08] MEDS: carvediloL 3.125 MG TABLET PO SCH ×2 (08:34→16:09)
[2021-01-08] MEDS: amLODIPine 5 MG TABLET PO SCH (08:34)
[2021-01-08] MEDS: CETIRIZINE 10 MG TABLET PO SCH (08:34)
[2021-01-08] MEDS: lisinopriL 10 MG TABLET PO SCH (08:34)
[2021-01-08] MEDS: CELECOXIB 200 MG CAPSULE PO SCH (08:34)
[2021-01-08] MEDS: GABAPENTIN 300 MG CAPSULE PO SCH ×2 (08:34→20:49)
[2021-01-08] MEDS: ESCITALOPRAM 10 MG TABLET PO SCH ×2 (08:34→20:49)
[2021-01-08] MEDS: PANTOPRAZOLE 40 MG VIAL IV SCH (08:35)
[2021-01-08] MEDS: SODIUM HYPOCHLORITE 0.25% IRRIG 473 ML BOTTLE TOP SCH ×2 (08:37→08:50)
[2021-01-08] MEDS: FLUTICASONE 50 MCG NASAL SPRAY 16 GM BOTTLE BOTH NARES SCH ×2 (08:37→20:50)
[2021-01-08 08:48] LABS: Basophils # 0.1 10*3/uL (0.0-0.2); Basophils % 0.8 % (0.0-0.8); Eosinophils # 0.4 10*3/uL (0.0-0.87); Eosinophils % 2.7 % (0.00-10.9); Hematocrit 25.9 VOL% (35.7-47.0); Hemoglobin 7.9 GM/DL (12.0-16.0); Immature Granulocytes % 1.8 %; Immature Granulocytes Absolute 0.29 #; Lymphocytes # 2.5 10*3/uL (1.4-4.0); Lymphocytes % 15.7 % (21.3-54.2); Mean Corpuscular HGB Conc 30.5 GM/DL (32-36); Mean Corpuscular Volume 92.2 FL (87-102); Mean Platelet Volume 9.6 FL (9.6-12.0); Monocytes % 9.4 % (1.7-12.7); Neutrophils % 69.6 % (38.7-73.9); Platelet Count 495 T/CUMM (130-400); Red Blood Count 2.81 MC/CUMM (3.8-5.5); Red Cell Distribution Width 14.1 % (9.3-17.3)
[2021-01-08] MEDS: INSULIN GLARGINE 100 UNIT/ML SUBCUT SCH (12:26)
[2021-01-08] MEDS: metroNIDAZOLE 500 MG TABLET PO SCH ×2 (12:26→16:09)
[2021-01-08] MEDS: SODIUM CHLORIDE 0.9% 1,000 ML IV SCH (12:29)
[2021-01-08] MEDS: ONDANSETRON 4 MG/2 ML VIAL IV PRN (17:43)
[2021-01-08] MEDS: ATORVASTATIN 20 MG TABLET PO SCH (20:49)
[2021-01-08] MEDS: ACETAMINOPHEN 325 MG TABLET PO PRN (21:58)
[2021-01-09] MEDS: HYDROmorphone 2 MG/1 ML VIAL IV PRN ×4 (01:05→21:53)
[2021-01-09] MEDS: SODIUM CHLORIDE 0.9% 1,000 ML IV SCH ×2 (02:34→21:52)
[2021-01-09] MEDS: CIPROFLOXACIN INJ 400 MG/200 ML PREMIX IV SCH ×2 (03:16→16:44)
[2021-01-09 04:22] LABS: Basophils # 0.1 10*3/uL (0.0-0.2); Basophils % 0.5 % (0.0-0.8); Eosinophils # 0.1 10*3/uL (0.0-0.87); Eosinophils % 0.3 % (0.00-10.9); Hematocrit 26.8 VOL% (35.7-47.0); Hemoglobin 8.5 GM/DL (12.0-16.0); Immature Granulocytes % 1.5 %; Immature Granulocytes Absolute 0.35 #; Lymphocytes % 8.4 % (21.3-54.2); Mean Corpuscular HGB Conc 31.7 GM/DL (32-36); Mean Corpuscular Volume 88.7 FL (87-102); Mean Platelet Volume 9.2 FL (9.6-12.0); Monocytes % 5.5 % (1.7-12.7); Neutrophils % 83.8 % (38.7-73.9); Platelet Count 452 T/CUMM (130-400); Red Blood Count 3.02 MC/CUMM (3.8-5.5); Red Cell Distribution Width 14.3 % (9.3-17.3); White Blood Count 23.8 T/CUMM (4-12)
[2021-01-09 04:38] LABS: Albumin 1.6 G/DL (3.4-5.0); Bilirubin,Total 0.4 MG/DL (0.20-1.00); Osmolality,Calculated 271.9 MOS/KG (273-304); Potassium 3.7 MMOL/L (3.5-5.1); Total Protein 6.8 G/DL (6.4-8.2)
[2021-01-09 04:47] LABS: Band Neutrophils 1 % (0-10); Hypochromasia 1+; Lymphocytes 9 % (20-55); Microcytosis 1+; Segmented Neutrophils 84 % (50-85); Total Cells Counted 100
[2021-01-09] MEDS: INSULIN GLARGINE 100 UNIT/ML SUBCUT SCH (08:23)
[2021-01-09] MEDS: INSULIN REGULAR 100 UNIT/ML SUBCUT SCH ×4 (08:23→21:24)
[2021-01-09] MEDS: PANTOPRAZOLE 40 MG VIAL IV SCH (08:36)
[2021-01-09] MEDS: MAGNESIUM SULF RIDER 2 GM/50 ML PREMIX IV PRN (08:36)
[2021-01-09] MEDS: GABAPENTIN 300 MG CAPSULE PO SCH ×2 (08:37→21:24)
[2021-01-09] MEDS: ESCITALOPRAM 10 MG TABLET PO SCH ×2 (08:37→21:24)
[2021-01-09] MEDS: metroNIDAZOLE 500 MG TABLET PO SCH ×3 (08:37→16:44)
[2021-01-09] MEDS: amLODIPine 5 MG TABLET PO SCH (08:37)
[2021-01-09] MEDS: CELECOXIB 200 MG CAPSULE PO SCH (08:37)
[2021-01-09] MEDS: lisinopriL 10 MG TABLET PO SCH (08:37)
[2021-01-09] MEDS: carvediloL 3.125 MG TABLET PO SCH ×2 (08:37→16:44)
[2021-01-09] MEDS: CETIRIZINE 10 MG TABLET PO SCH (08:37)
[2021-01-09] MEDS: FLUTICASONE 50 MCG NASAL SPRAY 16 GM BOTTLE BOTH NARES SCH ×2 (08:38→21:25)
[2021-01-09] MEDS: DOCUSATE SODIUM 100 MG CAPSULE PO SCH ×2 (09:10→21:24)
[2021-01-09] MEDS: SODIUM HYPOCHLORITE 0.25% IRRIG 473 ML BOTTLE TOP SCH ×2 (09:10→10:54)
[2021-01-09] MEDS ORDERED: propofoL 200 MG/20 ML VIAL IV ONE (10:51)
[2021-01-09] MEDS ORDERED: fentaNYL 100 MCG/2 ML VIAL ONE (10:51)
[2021-01-09] MEDS ORDERED: GLUCAGON 1 MG VIAL IM PRN (10:51)
[2021-01-09] MEDS ORDERED: DEXTROSE 50% 25 GM/50 ML VIAL IV PRN (10:51)
[2021-01-09] MEDS ORDERED: LIDOCAINE 2% 5 ML VIAL ONE (10:51)
[2021-01-09] MEDS ORDERED: PHENYLEPHRINE 10 MG/1 ML VIAL IV ONE (11:10)
[2021-01-09] MEDS ORDERED: ONDANSETRON 4 MG/2 ML VIAL ONE (11:28)
[2021-01-09] MEDS ORDERED: HYDROmorphone 2 MG/1 ML VIAL IV PRN (11:50)
[2021-01-09] MEDS ORDERED: ONDANSETRON 4 MG/2 ML VIAL IV PRN (11:50)
[2021-01-09] MEDS ORDERED: SEVOFLURANE 1 UNIT/15 MINUTE INH ONE (13:12)
[2021-01-09] MEDS: ATORVASTATIN 20 MG TABLET PO SCH (21:24)
[2021-01-10] MEDS: HYDROmorphone 2 MG/1 ML VIAL IV PRN ×4 (03:41→20:58)
[2021-01-10 05:16] LABS: Basophils # 0.1 10*3/uL (0.0-0.2); Basophils % 0.6 % (0.0-0.8); Eosinophils # 0.3 10*3/uL (0.0-0.87); Eosinophils % 1.7 % (0.00-10.9); Hematocrit 26.7 VOL% (35.7-47.0); Hemoglobin 8.2 GM/DL (12.0-16.0); Immature Granulocytes Absolute 0.16 #; Lymphocytes # 1.9 10*3/uL (1.4-4.0); Lymphocytes % 11.5 % (21.3-54.2); Mean Corpuscular HGB Conc 30.7 GM/DL (32-36); Mean Corpuscular Volume 89.6 FL (87-102); Mean Platelet Volume 9.2 FL (9.6-12.0); Monocytes % 9.3 % (1.7-12.7); Neutrophils % 75.9 % (38.7-73.9); Platelet Count 505 T/CUMM (130-400); Red Blood Count 2.98 MC/CUMM (3.8-5.5); Red Cell Distribution Width 14.3 % (9.3-17.3); White Blood Count 16.3 T/CUMM (4-12)
[2021-01-10 05:36] LABS: Alanine Aminotransferase 13 U/L (13-56); Albumin 1.7 G/DL (3.4-5.0); Alkaline Phosphatase 144 U/L (45-117); Aspartate Amino Transferase 11 U/L (0-37); Bilirubin,Total < 0.39 MG/DL (0.20-1.00); Blood Urea Nitrogen 11 MG/DL (7-18); Calcium 8.1 MG/DL (8.5-10.1); Carbon Dioxide 26 MMOL/L (21-32); Estimated Glom Filtration Rate 104 ML/MIN; Glucose 253 MG/DL (74-106); Potassium 3.7 MMOL/L (3.5-5.1); Sodium 136 MMOL/L (136-145); Total Protein 7.3 G/DL (6.4-8.2)
[2021-01-10] MEDS ORDERED: GLUCAGON 1 MG VIAL IM PRN (08:16)
[2021-01-10] MEDS ORDERED: DEXTROSE 50% 25 GM/50 ML VIAL IV PRN (08:16)
[2021-01-10] MEDS: INSULIN REGULAR 100 UNIT/ML SUBCUT SCH ×4 (09:04→20:58)
[2021-01-10] MEDS: INSULIN GLARGINE 100 UNIT/ML SUBCUT SCH (09:05)
[2021-01-10] MEDS: PANTOPRAZOLE 40 MG VIAL IV SCH (09:05)
[2021-01-10] MEDS: GABAPENTIN 300 MG CAPSULE PO SCH ×2 (09:06→20:59)
[2021-01-10] MEDS: DOCUSATE SODIUM 100 MG CAPSULE PO SCH ×2 (09:06→20:59)
[2021-01-10] MEDS: CELECOXIB 200 MG CAPSULE PO SCH (09:06)
[2021-01-10] MEDS: lisinopriL 10 MG TABLET PO SCH (09:06)
[2021-01-10] MEDS: ESCITALOPRAM 10 MG TABLET PO SCH ×2 (09:06→20:59)
[2021-01-10] MEDS: CETIRIZINE 10 MG TABLET PO SCH (09:06)
[2021-01-10] MEDS: carvediloL 3.125 MG TABLET PO SCH ×2 (09:06→16:49)
[2021-01-10] MEDS: ACETAMINOPHEN 325 MG TABLET PO PRN (09:07)
[2021-01-10] MEDS: amLODIPine 5 MG TABLET PO SCH (09:07)
[2021-01-10] MEDS: SODIUM HYPOCHLORITE 0.25% IRRIG 473 ML BOTTLE TOP SCH (09:07)
[2021-01-10] MEDS: metroNIDAZOLE 500 MG TABLET PO SCH ×3 (09:07→16:49)
[2021-01-10] MEDS: FLUTICASONE 50 MCG NASAL SPRAY 16 GM BOTTLE BOTH NARES SCH ×2 (09:08→21:00)
[2021-01-10] MEDS: CIPROFLOXACIN INJ 400 MG/200 ML PREMIX IV SCH ×2 (09:19→20:59)
[2021-01-10] MEDS: SODIUM CHLORIDE 0.9% 1,000 ML IV SCH (20:59)
[2021-01-10] MEDS: ATORVASTATIN 20 MG TABLET PO SCH (20:59)
[2021-01-11] MEDS: HYDROmorphone 2 MG/1 ML VIAL IV PRN ×4 (04:02→22:02)
[2021-01-11 07:25] LABS: Basophils # 0.1 10*3/uL (0.0-0.2); Basophils % 0.9 % (0.0-0.8); Eosinophils # 0.3 10*3/uL (0.0-0.87); Eosinophils % 2.2 % (0.00-10.9); Hematocrit 27.3 VOL% (35.7-47.0); Hemoglobin 8.6 GM/DL (12.0-16.0); Immature Granulocytes % 0.7 %; Lymphocytes # 2.4 10*3/uL (1.4-4.0); Lymphocytes % 17.6 % (21.3-54.2); Mean Corpuscular HGB Conc 31.5 GM/DL (32-36); Mean Corpuscular Volume 88.1 FL (87-102); Monocytes % 7.8 % (1.7-12.7); Neutrophils % 70.8 % (38.7-73.9); Platelet Count 473 T/CUMM (130-400); Red Cell Distribution Width 14.3 % (9.3-17.3); White Blood Count 13.5 T/CUMM (4-12)
[2021-01-11 07:55] LABS: Alanine Aminotransferase 10 U/L (13-56); Albumin 1.7 G/DL (3.4-5.0); Alkaline Phosphatase 138 U/L (45-117); Aspartate Amino Transferase 11 U/L (0-37); Bilirubin,Total < 0.39 MG/DL (0.20-1.00); Blood Urea Nitrogen 11 MG/DL (7-18); Calcium 8.2 MG/DL (8.5-10.1); Carbon Dioxide 25 MMOL/L (21-32); Estimated Glom Filtration Rate 118 ML/MIN; Glucose 251 MG/DL (74-106); Osmolality,Calculated 276.1 MOS/KG (273-304); Potassium 4.2 MMOL/L (3.5-5.1); Sodium 135 MMOL/L (136-145); Total Protein 7.3 G/DL (6.4-8.2)
[2021-01-11] MEDS: CIPROFLOXACIN INJ 400 MG/200 ML PREMIX IV SCH ×2 (09:07→21:59)
[2021-01-11] MEDS: PANTOPRAZOLE 40 MG VIAL IV SCH (09:07)
[2021-01-11] MEDS: DOCUSATE SODIUM 100 MG CAPSULE PO SCH ×2 (09:08→21:59)
[2021-01-11] MEDS: CELECOXIB 200 MG CAPSULE PO SCH (09:08)
[2021-01-11] MEDS: INSULIN GLARGINE 100 UNIT/ML SUBCUT SCH ×2 (09:08→22:01)
[2021-01-11] MEDS: INSULIN REGULAR 100 UNIT/ML SUBCUT SCH ×4 (09:08→22:01)
[2021-01-11] MEDS: GABAPENTIN 300 MG CAPSULE PO SCH ×2 (09:09→21:59)
[2021-01-11] MEDS: lisinopriL 10 MG TABLET PO SCH (09:09)
[2021-01-11] MEDS: ESCITALOPRAM 10 MG TABLET PO SCH ×2 (09:09→22:00)
[2021-01-11] MEDS: CETIRIZINE 10 MG TABLET PO SCH (09:09)
[2021-01-11] MEDS: metroNIDAZOLE 500 MG TABLET PO SCH ×3 (09:09→16:35)
[2021-01-11] MEDS: amLODIPine 5 MG TABLET PO SCH (09:09)
[2021-01-11] MEDS: carvediloL 3.125 MG TABLET PO SCH ×2 (09:09→16:35)
[2021-01-11] MEDS: SODIUM HYPOCHLORITE 0.25% IRRIG 473 ML BOTTLE TOP SCH (09:09)
[2021-01-11] MEDS: FLUTICASONE 50 MCG NASAL SPRAY 16 GM BOTTLE BOTH NARES SCH ×2 (09:09→22:00)
[2021-01-11] MEDS: ALBUMIN 25% 25 GM/100 ML VIAL IV SCH (16:36)
[2021-01-11] MEDS: SODIUM CHLORIDE 0.9% 1,000 ML IV SCH (18:25)
[2021-01-11] MEDS: ATORVASTATIN 20 MG TABLET PO SCH (21:59)
[2021-01-12] MEDS: ALBUMIN 25% 25 GM/100 ML VIAL IV SCH ×4 (03:12→23:46)
[2021-01-12] MEDS: HYDROmorphone 2 MG/1 ML VIAL IV PRN ×3 (03:12→21:41)
[2021-01-12 06:09] LABS: Basophils # 0.1 10*3/uL (0.0-0.2); Eosinophils # 0.4 10*3/uL (0.0-0.87); Eosinophils % 3.3 % (0.00-10.9); Hematocrit 27.1 VOL% (35.7-47.0); Hemoglobin 8.2 GM/DL (12.0-16.0); Immature Granulocytes % 0.8 %; Immature Granulocytes Absolute 0.09 #; Lymphocytes # 1.7 10*3/uL (1.4-4.0); Lymphocytes % 15.4 % (21.3-54.2); Mean Corpuscular HGB Conc 30.3 GM/DL (32-36); Mean Corpuscular Volume 89.1 FL (87-102); Mean Platelet Volume 9.1 FL (9.6-12.0); Monocytes % 5.1 % (1.7-12.7); Neutrophils % 74.4 % (38.7-73.9); Platelet Count 462 T/CUMM (130-400); Red Blood Count 3.04 MC/CUMM (3.8-5.5); Red Cell Distribution Width 14.3 % (9.3-17.3); White Blood Count 11.2 T/CUMM (4-12)
[2021-01-12 06:34] LABS: Albumin 2.4 G/DL (3.4-5.0); Bilirubin,Total 1.5 MG/DL (0.20-1.00); Calcium 8.8 MG/DL (8.5-10.1); Osmolality,Calculated 276.8 MOS/KG (273-304); Potassium 3.9 MMOL/L (3.5-5.1); Total Protein 7.8 G/DL (6.4-8.2)
[2021-01-12] MEDS: CELECOXIB 200 MG CAPSULE PO SCH (08:54)
[2021-01-12] MEDS: INSULIN GLARGINE 100 UNIT/ML SUBCUT SCH ×2 (08:54→21:36)
[2021-01-12] MEDS: metroNIDAZOLE 500 MG TABLET PO SCH ×3 (08:54→17:16)
[2021-01-12] MEDS: CETIRIZINE 10 MG TABLET PO SCH (08:54)
[2021-01-12] MEDS: GABAPENTIN 300 MG CAPSULE PO SCH ×2 (08:54→21:37)
[2021-01-12] MEDS: DOCUSATE SODIUM 100 MG CAPSULE PO SCH ×2 (08:54→21:37)
[2021-01-12] MEDS: INSULIN REGULAR 100 UNIT/ML SUBCUT SCH ×4 (08:54→21:36)
[2021-01-12] MEDS: amLODIPine 5 MG TABLET PO SCH (08:55)
[2021-01-12] MEDS: PANTOPRAZOLE 40 MG VIAL IV SCH (08:55)
[2021-01-12] MEDS: carvediloL 3.125 MG TABLET PO SCH ×2 (08:55→17:16)
[2021-01-12] MEDS: lisinopriL 10 MG TABLET PO SCH (08:55)
[2021-01-12] MEDS: ESCITALOPRAM 10 MG TABLET PO SCH ×2 (08:55→21:37)
[2021-01-12] MEDS: SODIUM HYPOCHLORITE 0.25% IRRIG 473 ML BOTTLE TOP SCH (08:58)
[2021-01-12] MEDS: CIPROFLOXACIN INJ 400 MG/200 ML PREMIX IV SCH ×2 (09:49→21:37)
[2021-01-12] MEDS: FLUTICASONE 50 MCG NASAL SPRAY 16 GM BOTTLE BOTH NARES SCH ×2 (09:49→21:37)
[2021-01-12] MEDS: SODIUM CHLORIDE 0.9% 1,000 ML IV SCH (13:17)
[2021-01-12] MEDS: ATORVASTATIN 20 MG TABLET PO SCH (21:37)
[2021-01-13] MEDS: HYDROmorphone 2 MG/1 ML VIAL IV PRN ×3 (04:13→21:20)
[2021-01-13 05:47] LABS: Basophils # 0.1 10*3/uL (0.0-0.2); Basophils % 0.9 % (0.0-0.8); Eosinophils # 0.4 10*3/uL (0.0-0.87); Eosinophils % 3.4 % (0.00-10.9); Hematocrit 26.3 VOL% (35.7-47.0); Hemoglobin 8.2 GM/DL (12.0-16.0); Immature Granulocytes % 0.6 %; Immature Granulocytes Absolute 0.07 #; Lymphocytes # 2.1 10*3/uL (1.4-4.0); Lymphocytes % 16.8 % (21.3-54.2); Mean Corpuscular HGB Conc 31.2 GM/DL (32-36); Mean Corpuscular Volume 88.9 FL (87-102); Mean Platelet Volume 9.3 FL (9.6-12.0); Monocytes % 9.9 % (1.7-12.7); Neutrophils % 68.4 % (38.7-73.9); Platelet Count 452 T/CUMM (130-400); Red Blood Count 2.96 MC/CUMM (3.8-5.5); Red Cell Distribution Width 14.5 % (9.3-17.3); White Blood Count 12.7 T/CUMM (4-12)
[2021-01-13 06:07] LABS: Bilirubin,Total 0.7 MG/DL (0.20-1.00); Calcium 9.1 MG/DL (8.5-10.1); Osmolality,Calculated 271.1 MOS/KG (273-304)
[2021-01-13] MEDS: ALBUMIN 25% 25 GM/100 ML VIAL IV SCH ×3 (08:44→23:34)
[2021-01-13] MEDS: INSULIN GLARGINE 100 UNIT/ML SUBCUT SCH ×2 (08:45→21:18)
[2021-01-13] MEDS: FLUTICASONE 50 MCG NASAL SPRAY 16 GM BOTTLE BOTH NARES SCH ×2 (08:45→21:19)
[2021-01-13] MEDS: INSULIN REGULAR 100 UNIT/ML SUBCUT SCH ×4 (08:45→21:18)
[2021-01-13] MEDS: metroNIDAZOLE 500 MG TABLET PO SCH ×3 (08:47→16:48)
[2021-01-13] MEDS: GABAPENTIN 300 MG CAPSULE PO SCH ×2 (08:47→21:19)
[2021-01-13] MEDS: CETIRIZINE 10 MG TABLET PO SCH (08:47)
[2021-01-13] MEDS: CELECOXIB 200 MG CAPSULE PO SCH (08:47)
[2021-01-13] MEDS: lisinopriL 10 MG TABLET PO SCH (08:47)
[2021-01-13] MEDS: ESCITALOPRAM 10 MG TABLET PO SCH ×2 (08:47→21:19)
[2021-01-13] MEDS: DOCUSATE SODIUM 100 MG CAPSULE PO SCH ×2 (08:47→21:19)
[2021-01-13] MEDS: amLODIPine 5 MG TABLET PO SCH (08:47)
[2021-01-13] MEDS: SODIUM CHLORIDE 0.9% 1,000 ML IV SCH (09:17)
[2021-01-13] MEDS: CIPROFLOXACIN INJ 400 MG/200 ML PREMIX IV SCH ×2 (10:23→21:17)
[2021-01-13] MEDS: SODIUM HYPOCHLORITE 0.25% IRRIG 473 ML BOTTLE TOP SCH (10:37)
[2021-01-13] MEDS: PANTOPRAZOLE 40 MG VIAL IV SCH (10:37)
[2021-01-13] MEDS: carvediloL 3.125 MG TABLET PO SCH ×2 (10:37→16:48)
[2021-01-13] MEDS: ATORVASTATIN 20 MG TABLET PO SCH (21:19)
[2021-01-14] MEDS: HYDROmorphone 2 MG/1 ML VIAL IV PRN ×3 (05:07→21:21)
[2021-01-14] MEDS: SODIUM CHLORIDE 0.9% 1,000 ML IV SCH ×2 (05:12→09:55)
[2021-01-14 05:44] LABS: Basophils # 0.1 10*3/uL (0.0-0.2); Basophils % 1.1 % (0.0-0.8); Eosinophils # 0.4 10*3/uL (0.0-0.87); Eosinophils % 3.4 % (0.00-10.9); Hematocrit 26.6 VOL% (35.7-47.0); Hemoglobin 8.5 GM/DL (12.0-16.0); Immature Granulocytes % 0.9 %; Lymphocytes # 1.9 10*3/uL (1.4-4.0); Mean Corpuscular Volume 87.5 FL (87-102); Mean Platelet Volume 9.2 FL (9.6-12.0); Monocytes % 9.7 % (1.7-12.7); Neutrophils % 68.9 % (38.7-73.9); Platelet Count 439 T/CUMM (130-400); Red Blood Count 3.04 MC/CUMM (3.8-5.5); Red Cell Distribution Width 14.5 % (9.3-17.3); White Blood Count 11.6 T/CUMM (4-12)
[2021-01-14 06:07] LABS: Albumin 3.3 G/DL (3.4-5.0); Calcium 9.4 MG/DL (8.5-10.1); Osmolality,Calculated 277.4 MOS/KG (273-304); Potassium 4.3 MMOL/L (3.5-5.1); Total Protein 8.1 G/DL (6.4-8.2)
[2021-01-14] MEDS: GABAPENTIN 300 MG CAPSULE PO SCH ×2 (09:56→21:19)
[2021-01-14] MEDS: ESCITALOPRAM 10 MG TABLET PO SCH ×2 (09:56→21:19)
[2021-01-14] MEDS: metroNIDAZOLE 500 MG TABLET PO SCH ×3 (09:56→16:35)
[2021-01-14] MEDS: CELECOXIB 200 MG CAPSULE PO SCH (09:57)
[2021-01-14] MEDS: amLODIPine 5 MG TABLET PO SCH (09:57)
[2021-01-14] MEDS: INSULIN GLARGINE 100 UNIT/ML SUBCUT SCH ×2 (09:57→21:19)
[2021-01-14] MEDS: INSULIN REGULAR 100 UNIT/ML SUBCUT SCH ×4 (09:57→21:19)
[2021-01-14] MEDS: DOCUSATE SODIUM 100 MG CAPSULE PO SCH ×2 (09:57→21:19)
[2021-01-14] MEDS: lisinopriL 10 MG TABLET PO SCH (09:57)
[2021-01-14] MEDS: carvediloL 3.125 MG TABLET PO SCH ×2 (09:58→16:35)
[2021-01-14] MEDS: ALBUMIN 25% 25 GM/100 ML VIAL IV SCH ×2 (09:58→16:34)
[2021-01-14] MEDS: CETIRIZINE 10 MG TABLET PO SCH (09:58)
[2021-01-14] MEDS: FLUTICASONE 50 MCG NASAL SPRAY 16 GM BOTTLE BOTH NARES SCH ×2 (09:59→21:20)
[2021-01-14] MEDS: SODIUM HYPOCHLORITE 0.25% IRRIG 473 ML BOTTLE TOP SCH (09:59)
[2021-01-14] MEDS: PANTOPRAZOLE 40 MG VIAL IV SCH (11:03)
[2021-01-14] MEDS: CIPROFLOXACIN INJ 400 MG/200 ML PREMIX IV SCH ×2 (11:03→21:17)
[2021-01-14] MEDS: ATORVASTATIN 20 MG TABLET PO SCH (21:20)
[2021-01-15] MEDS: ALBUMIN 25% 25 GM/100 ML VIAL IV SCH ×2 (00:26→09:36)
[2021-01-15] MEDS: HYDROmorphone 2 MG/1 ML VIAL IV PRN ×5 (05:04→23:06)
[2021-01-15 06:42] LABS: Basophils # 0.2 10*3/uL (0.0-0.2); Basophils % 1.3 % (0.0-0.8); Eosinophils # 0.6 10*3/uL (0.0-0.87); Eosinophils % 4.9 % (0.00-10.9); Hematocrit 26.6 VOL% (35.7-47.0); Hemoglobin 8.3 GM/DL (12.0-16.0); Immature Granulocytes % 0.8 %; Immature Granulocytes Absolute 0.09 #; Lymphocytes # 2.1 10*3/uL (1.4-4.0); Lymphocytes % 18.7 % (21.3-54.2); Mean Corpuscular HGB Conc 31.2 GM/DL (32-36); Mean Corpuscular Volume 87.2 FL (87-102); Mean Platelet Volume 9.2 FL (9.6-12.0); Monocytes % 9.5 % (1.7-12.7); Neutrophils % 64.8 % (38.7-73.9); Platelet Count 461 T/CUMM (130-400); Red Blood Count 3.05 MC/CUMM (3.8-5.5); Red Cell Distribution Width 14.6 % (9.3-17.3); White Blood Count 11.2 T/CUMM (4-12)
[2021-01-15 06:58] LABS: Albumin 3.8 G/DL (3.4-5.0); Bilirubin,Total 1.1 MG/DL (0.20-1.00); Calcium 9.4 MG/DL (8.5-10.1); Osmolality,Calculated 273.4 MOS/KG (273-304); Potassium 4.4 MMOL/L (3.5-5.1); Total Protein 8.5 G/DL (6.4-8.2)
[2021-01-15] MEDS: INSULIN GLARGINE 100 UNIT/ML SUBCUT SCH ×2 (09:33→20:51)
[2021-01-15] MEDS: PANTOPRAZOLE 40 MG VIAL IV SCH (09:34)
[2021-01-15] MEDS: INSULIN REGULAR 100 UNIT/ML SUBCUT SCH ×4 (09:34→20:50)
[2021-01-15] MEDS: lisinopriL 10 MG TABLET PO SCH (09:35)
[2021-01-15] MEDS: GABAPENTIN 300 MG CAPSULE PO SCH ×2 (09:35→20:50)
[2021-01-15] MEDS: CETIRIZINE 10 MG TABLET PO SCH (09:35)
[2021-01-15] MEDS: CELECOXIB 200 MG CAPSULE PO SCH (09:35)
[2021-01-15] MEDS: metroNIDAZOLE 500 MG TABLET PO SCH ×4 (09:35→16:23)
[2021-01-15] MEDS: ESCITALOPRAM 10 MG TABLET PO SCH ×2 (09:36→20:50)
[2021-01-15] MEDS: carvediloL 3.125 MG TABLET PO SCH ×3 (09:36→16:23)
[2021-01-15] MEDS: amLODIPine 5 MG TABLET PO SCH (09:36)
[2021-01-15] MEDS: CIPROFLOXACIN INJ 400 MG/200 ML PREMIX IV SCH ×2 (10:19→20:53)
[2021-01-15] MEDS: DOCUSATE SODIUM 100 MG CAPSULE PO SCH ×2 (12:32→20:50)
[2021-01-15] MEDS: FLUTICASONE 50 MCG NASAL SPRAY 16 GM BOTTLE BOTH NARES SCH ×2 (12:46→21:57)
[2021-01-15] MEDS: SODIUM CHLORIDE 0.9% 1,000 ML IV SCH ×2 (12:56→14:34)
[2021-01-15] MEDS: SODIUM HYPOCHLORITE 0.25% IRRIG 473 ML BOTTLE TOP SCH (13:56)
[2021-01-15] MEDS: ENOXAPARIN 40 MG/0.4 ML SYRINGE SUBCUT SCH (15:46)
[2021-01-15] MEDS: ATORVASTATIN 20 MG TABLET PO SCH (20:50)
[2021-01-16] MEDS: SODIUM CHLORIDE 0.9% 1,000 ML IV SCH ×2 (01:20→13:01)
[2021-01-16] MEDS: HYDROmorphone 2 MG/1 ML VIAL IV PRN ×5 (04:50→21:20)
[2021-01-16 06:37] LABS: Basophils # 0.1 10*3/uL (0.0-0.2); Basophils % 1.2 % (0.0-0.8); Eosinophils # 0.6 10*3/uL (0.0-0.87); Eosinophils % 5.5 % (0.00-10.9); Hematocrit 28.5 VOL% (35.7-47.0); Hemoglobin 8.7 GM/DL (12.0-16.0); Immature Granulocytes % 0.6 %; Immature Granulocytes Absolute 0.07 #; Lymphocytes % 17.6 % (21.3-54.2); Mean Corpuscular HGB Conc 30.5 GM/DL (32-36); Mean Corpuscular Volume 88.2 FL (87-102); Mean Platelet Volume 9.5 FL (9.6-12.0); Neutrophils % 65.1 % (38.7-73.9); Platelet Count 501 T/CUMM (130-400); Red Blood Count 3.23 MC/CUMM (3.8-5.5); Red Cell Distribution Width 14.6 % (9.3-17.3); White Blood Count 11.6 T/CUMM (4-12)
[2021-01-16 07:05] LABS: Albumin 3.6 G/DL (3.4-5.0); Bilirubin,Total 1.5 MG/DL (0.20-1.00); Calcium 9.3 MG/DL (8.5-10.1); Osmolality,Calculated 278.2 MOS/KG (273-304); Potassium 4.5 MMOL/L (3.5-5.1); Total Protein 8.3 G/DL (6.4-8.2)
[2021-01-16] MEDS: ESCITALOPRAM 10 MG TABLET PO SCH ×2 (09:46→21:17)
[2021-01-16] MEDS: DOCUSATE SODIUM 100 MG CAPSULE PO SCH ×2 (09:46→21:16)
[2021-01-16] MEDS: PANTOPRAZOLE 40 MG VIAL IV SCH (09:46)
[2021-01-16] MEDS: CELECOXIB 200 MG CAPSULE PO SCH (09:46)
[2021-01-16] MEDS: GABAPENTIN 300 MG CAPSULE PO SCH ×2 (09:46→21:16)
[2021-01-16] MEDS: CETIRIZINE 10 MG TABLET PO SCH (09:47)
[2021-01-16] MEDS: metroNIDAZOLE 500 MG TABLET PO SCH ×3 (09:47→17:36)
[2021-01-16] MEDS: amLODIPine 5 MG TABLET PO SCH (09:47)
[2021-01-16] MEDS: carvediloL 3.125 MG TABLET PO SCH ×2 (09:47→17:36)
[2021-01-16] MEDS: lisinopriL 10 MG TABLET PO SCH (09:47)
[2021-01-16] MEDS: INSULIN GLARGINE 100 UNIT/ML SUBCUT SCH ×2 (09:48→21:18)
[2021-01-16] MEDS: INSULIN REGULAR 100 UNIT/ML SUBCUT SCH ×4 (09:48→21:18)
[2021-01-16] MEDS: SODIUM HYPOCHLORITE 0.25% IRRIG 473 ML BOTTLE TOP SCH (09:48)
[2021-01-16] MEDS: FLUTICASONE 50 MCG NASAL SPRAY 16 GM BOTTLE BOTH NARES SCH ×2 (09:49→21:17)
[2021-01-16] MEDS: CIPROFLOXACIN INJ 400 MG/200 ML PREMIX IV SCH ×2 (09:54→21:17)
[2021-01-16] MEDS: ENOXAPARIN 40 MG/0.4 ML SYRINGE SUBCUT SCH (14:39)
[2021-01-16] MEDS: ATORVASTATIN 20 MG TABLET PO SCH (21:17)
[2021-01-17] MEDS: HYDROmorphone 2 MG/1 ML VIAL IV PRN ×7 (04:56→21:08)
[2021-01-17 06:18] LABS: Basophils # 0.2 10*3/uL (0.0-0.2); Basophils % 1.4 % (0.0-0.8); Eosinophils # 0.9 10*3/uL (0.0-0.87); Eosinophils % 8.5 % (0.00-10.9); Hematocrit 30.6 VOL% (35.7-47.0); Hemoglobin 9.2 GM/DL (12.0-16.0); Immature Granulocytes % 0.7 %; Immature Granulocytes Absolute 0.07 #; Lymphocytes % 18.9 % (21.3-54.2); Mean Corpuscular HGB Conc 30.1 GM/DL (32-36); Mean Corpuscular Volume 89.2 FL (87-102); Mean Platelet Volume 9.4 FL (9.6-12.0); Monocytes % 8.9 % (1.7-12.7); Neutrophils % 61.6 % (38.7-73.9); Platelet Count 483 T/CUMM (130-400); Red Blood Count 3.43 MC/CUMM (3.8-5.5); Red Cell Distribution Width 14.6 % (9.3-17.3); White Blood Count 10.8 T/CUMM (4-12)
[2021-01-17 06:35] LABS: Albumin 3.5 G/DL (3.4-5.0); Bilirubin,Total 0.8 MG/DL (0.20-1.00); Calcium 9.1 MG/DL (8.5-10.1); Potassium 4.7 MMOL/L (3.5-5.1); Total Protein 8.3 G/DL (6.4-8.2)
[2021-01-17] MEDS: metroNIDAZOLE 500 MG TABLET PO SCH ×3 (08:29→16:44)
[2021-01-17] MEDS: CELECOXIB 200 MG CAPSULE PO SCH (08:29)
[2021-01-17] MEDS: INSULIN REGULAR 100 UNIT/ML SUBCUT SCH ×4 (08:29→21:06)
[2021-01-17] MEDS: carvediloL 3.125 MG TABLET PO SCH ×2 (08:29→16:44)
[2021-01-17] MEDS: INSULIN GLARGINE 100 UNIT/ML SUBCUT SCH ×2 (08:30→21:06)
[2021-01-17] MEDS: ESCITALOPRAM 10 MG TABLET PO SCH ×2 (08:30→21:05)
[2021-01-17] MEDS: SODIUM HYPOCHLORITE 0.25% IRRIG 473 ML BOTTLE TOP SCH (08:30)
[2021-01-17] MEDS: DOCUSATE SODIUM 100 MG CAPSULE PO SCH ×2 (08:30→21:05)
[2021-01-17] MEDS: lisinopriL 10 MG TABLET PO SCH (08:31)
[2021-01-17] MEDS: GABAPENTIN 300 MG CAPSULE PO SCH ×3 (08:31→21:05)
[2021-01-17] MEDS: amLODIPine 5 MG TABLET PO SCH (08:31)
[2021-01-17] MEDS: CETIRIZINE 10 MG TABLET PO SCH (08:31)
[2021-01-17] MEDS ORDERED: fentaNYL 100 MCG/2 ML VIAL ONE (10:28)
[2021-01-17] MEDS ORDERED: MIDAZOLAM 2 MG/2 ML VIAL ONE (10:29)
[2021-01-17] MEDS: CIPROFLOXACIN INJ 400 MG/200 ML PREMIX IV SCH ×2 (10:38→21:06)
[2021-01-17] MEDS: FLUTICASONE 50 MCG NASAL SPRAY 16 GM BOTTLE BOTH NARES SCH ×2 (10:38→21:07)
[2021-01-17] MEDS: PANTOPRAZOLE 40 MG VIAL IV SCH (10:38)
[2021-01-17] MEDS ORDERED: LACTATED RINGERS 1,000 ML IV SCH (11:00)
[2021-01-17] MEDS ORDERED: CLINDAMYCIN INJ 600 MG/50 ML PREMIX IV ONE (11:16)
[2021-01-17] MEDS ORDERED: LIDOCAINE 2% 5 ML VIAL ONE (11:31)
[2021-01-17] MEDS ORDERED: PHENYLEPHRINE 1 MG/10 ML SYRINGE IV ONE (11:31)
[2021-01-17] MEDS ORDERED: SEVOFLURANE 1 UNIT/15 MINUTE INH ONE ×3 (11:31→11:50)
[2021-01-17] MEDS ORDERED: propofoL 200 MG/20 ML VIAL IV ONE (11:31)
[2021-01-17] MEDS ORDERED: ACETAMINOPHEN INJ 1,000 MG/100 ML VIAL IV ONE ×2 (11:31→11:34)
[2021-01-17] MEDS ORDERED: ROCURONIUM 50 MG/5 ML VIAL IV ONE (11:31)
[2021-01-17] MEDS ORDERED: SUCCINYLCHOLINE 200 MG/10 ML VIAL ONE (11:31)
[2021-01-17] MEDS ORDERED: ONDANSETRON 4 MG/2 ML VIAL ONE (11:31)
[2021-01-17] MEDS ORDERED: PHENYLEPHRINE 10 MG/1 ML VIAL IV ONE (11:45)
[2021-01-17] MEDS ORDERED: NEOSTIGMINE 10 MG/10 ML VIAL ONE (12:04)
[2021-01-17] MEDS ORDERED: GLYCOPYRROLATE 0.4 MG/2 ML VIAL ONE (12:04)
[2021-01-17] MEDS: SODIUM CHLORIDE 0.9% 1,000 ML IV SCH (12:28)
[2021-01-17] MEDS ORDERED: ONDANSETRON 4 MG/2 ML VIAL IV PRN (12:52)
[2021-01-17] MEDS: ATORVASTATIN 20 MG TABLET PO SCH (21:05)
[2021-01-18] MEDS: HYDROmorphone 2 MG/1 ML VIAL IV PRN ×6 (00:16→16:03)
[2021-01-18] MEDS: SODIUM CHLORIDE 0.9% 1,000 ML IV SCH (06:39)
[2021-01-18 06:53] LABS: Basophils # 0.1 10*3/uL (0.0-0.2); Basophils % 0.9 % (0.0-0.8); Eosinophils % 7.3 % (0.00-10.9); Hematocrit 29.4 VOL% (35.7-47.0); Immature Granulocytes % 0.6 %; Immature Granulocytes Absolute 0.09 #; Lymphocytes # 2.7 10*3/uL (1.4-4.0); Lymphocytes % 19.1 % (21.3-54.2); Mean Corpuscular HGB Conc 30.6 GM/DL (32-36); Mean Platelet Volume 9.6 FL (9.6-12.0); Monocytes % 8.8 % (1.7-12.7); Neutrophils % 63.3 % (38.7-73.9); Platelet Count 516 T/CUMM (130-400); Red Blood Count 3.34 MC/CUMM (3.8-5.5); Red Cell Distribution Width 14.5 % (9.3-17.3); White Blood Count 13.9 T/CUMM (4-12)
[2021-01-18 07:19] LABS: Albumin 3.3 G/DL (3.4-5.0); Bilirubin,Total 0.7 MG/DL (0.20-1.00); Calcium 9.1 MG/DL (8.5-10.1); Osmolality,Calculated 276.4 MOS/KG (273-304); Potassium 4.5 MMOL/L (3.5-5.1); Total Protein 8.4 G/DL (6.4-8.2)
[2021-01-18] MEDS: INSULIN REGULAR 100 UNIT/ML SUBCUT SCH ×4 (09:07→20:56)
[2021-01-18] MEDS: PANTOPRAZOLE 40 MG VIAL IV SCH (09:07)
[2021-01-18] MEDS: CELECOXIB 200 MG CAPSULE PO SCH (09:08)
[2021-01-18] MEDS: amLODIPine 5 MG TABLET PO SCH (09:08)
[2021-01-18] MEDS: lisinopriL 10 MG TABLET PO SCH (09:08)
[2021-01-18] MEDS: carvediloL 3.125 MG TABLET PO SCH ×2 (09:08→18:09)
[2021-01-18] MEDS: ESCITALOPRAM 10 MG TABLET PO SCH ×2 (09:08→20:56)
[2021-01-18] MEDS: GABAPENTIN 300 MG CAPSULE PO SCH ×3 (09:08→20:56)
[2021-01-18] MEDS: DOCUSATE SODIUM 100 MG CAPSULE PO SCH ×2 (09:08→20:56)
[2021-01-18] MEDS: CETIRIZINE 10 MG TABLET PO SCH (09:08)
[2021-01-18] MEDS: CIPROFLOXACIN INJ 400 MG/200 ML PREMIX IV SCH ×2 (09:09→20:55)
[2021-01-18] MEDS: metroNIDAZOLE 500 MG TABLET PO SCH ×3 (09:09→18:09)
[2021-01-18] MEDS: FLUTICASONE 50 MCG NASAL SPRAY 16 GM BOTTLE BOTH NARES SCH ×2 (10:39→20:57)
[2021-01-18] MEDS: METHOCARBAMOL INJ 500 MG in SODIUM CHLORIDE 0.9% 100 ML IV SCH ×2 (11:35→18:09)
[2021-01-18] MEDS: INSULIN GLARGINE 100 UNIT/ML SUBCUT SCH ×2 (12:36→20:55)
[2021-01-18] MEDS: SODIUM HYPOCHLORITE 0.25% IRRIG 473 ML BOTTLE TOP SCH (13:28)
[2021-01-18] MEDS: ENOXAPARIN 40 MG/0.4 ML SYRINGE SUBCUT SCH (14:41)
[2021-01-18] MEDS ORDERED: NALOXONE 0.4 MG/ML VIAL IV PRN (15:45)
[2021-01-18] MEDS: HYDROmorphone PCA 30 MG/30 ML SYRINGE IV SCH (20:50)
[2021-01-18] MEDS: ATORVASTATIN 20 MG TABLET PO SCH (20:56)
[2021-01-19] MEDS: METHOCARBAMOL INJ 500 MG in SODIUM CHLORIDE 0.9% 100 ML IV SCH ×3 (03:38→18:15)
[2021-01-19 06:10] LABS: Basophils # 0.2 10*3/uL (0.0-0.2); Basophils % 1.4 % (0.0-0.8); Eosinophils # 1.1 10*3/uL (0.0-0.87); Eosinophils % 9.8 % (0.00-10.9); Hematocrit 30.3 VOL% (35.7-47.0); Hemoglobin 9.2 GM/DL (12.0-16.0); Immature Granulocytes % 0.4 %; Immature Granulocytes Absolute 0.04 #; Lymphocytes # 2.9 10*3/uL (1.4-4.0); Lymphocytes % 25.5 % (21.3-54.2); Mean Corpuscular HGB Conc 30.4 GM/DL (32-36); Mean Corpuscular Volume 89.4 FL (87-102); Mean Platelet Volume 9.2 FL (9.6-12.0); Monocytes % 11.3 % (1.7-12.7); Neutrophils % 51.6 % (38.7-73.9); Platelet Count 455 T/CUMM (130-400); Red Blood Count 3.39 MC/CUMM (3.8-5.5); Red Cell Distribution Width 14.5 % (9.3-17.3); White Blood Count 11.3 T/CUMM (4-12)
[2021-01-19 06:31] LABS: Albumin 3.1 G/DL (3.4-5.0); Bilirubin,Total 0.8 MG/DL (0.20-1.00); Calcium 9.1 MG/DL (8.5-10.1); Osmolality,Calculated 281.7 MOS/KG (273-304); Potassium 4.8 MMOL/L (3.5-5.1); Total Protein 8.1 G/DL (6.4-8.2)
[2021-01-19] MEDS: amLODIPine 5 MG TABLET PO SCH (09:33)
[2021-01-19] MEDS: CETIRIZINE 10 MG TABLET PO SCH (09:33)
[2021-01-19] MEDS: DOCUSATE SODIUM 100 MG CAPSULE PO SCH ×2 (09:33→21:35)
[2021-01-19] MEDS: GABAPENTIN 300 MG CAPSULE PO SCH ×3 (09:33→21:34)
[2021-01-19] MEDS: FLUTICASONE 50 MCG NASAL SPRAY 16 GM BOTTLE BOTH NARES SCH ×2 (09:33→21:35)
[2021-01-19] MEDS: lisinopriL 10 MG TABLET PO SCH (09:33)
[2021-01-19] MEDS: INSULIN GLARGINE 100 UNIT/ML SUBCUT SCH ×2 (09:33→21:35)
[2021-01-19] MEDS: carvediloL 3.125 MG TABLET PO SCH ×2 (09:33→17:05)
[2021-01-19] MEDS: CELECOXIB 200 MG CAPSULE PO SCH (09:33)
[2021-01-19] MEDS: ESCITALOPRAM 10 MG TABLET PO SCH ×2 (09:33→21:35)
[2021-01-19] MEDS: INSULIN REGULAR 100 UNIT/ML SUBCUT SCH ×4 (09:34→21:36)
[2021-01-19] MEDS: CIPROFLOXACIN INJ 400 MG/200 ML PREMIX IV SCH ×2 (09:34→21:34)
[2021-01-19] MEDS: PANTOPRAZOLE 40 MG VIAL IV SCH (09:35)
[2021-01-19] MEDS: metroNIDAZOLE 500 MG TABLET PO SCH ×3 (09:36→17:05)
[2021-01-19] MEDS: ENOXAPARIN 40 MG/0.4 ML SYRINGE SUBCUT SCH (15:30)
[2021-01-19] MEDS: SODIUM CHLORIDE 0.9% 1,000 ML IV SCH ×2 (17:27→22:52)
[2021-01-19] MEDS: ATORVASTATIN 20 MG TABLET PO SCH (21:35)
[2021-01-20] MEDS: METHOCARBAMOL INJ 500 MG in SODIUM CHLORIDE 0.9% 100 ML IV SCH ×3 (02:39→18:20)
[2021-01-20] MEDS: HYDROmorphone PCA 30 MG/30 ML SYRINGE IV SCH ×2 (05:29→07:59)
[2021-01-20 05:39] LABS: Basophils # 0.1 10*3/uL (0.0-0.2); Basophils % 0.9 % (0.0-0.8); Eosinophils # 1.4 10*3/uL (0.0-0.87); Eosinophils % 10.6 % (0.00-10.9); Hematocrit 30.7 VOL% (35.7-47.0); Hemoglobin 9.2 GM/DL (12.0-16.0); Immature Granulocytes % 0.5 %; Immature Granulocytes Absolute 0.07 #; Lymphocytes % 15.2 % (21.3-54.2); Mean Corpuscular Volume 88.7 FL (87-102); Mean Platelet Volume 9.5 FL (9.6-12.0); Monocytes % 5.7 % (1.7-12.7); Neutrophils % 67.1 % (38.7-73.9); Platelet Count 482 T/CUMM (130-400); Red Blood Count 3.46 MC/CUMM (3.8-5.5); Red Cell Distribution Width 14.6 % (9.3-17.3); White Blood Count 13.3 T/CUMM (4-12)
[2021-01-20 06:10] LABS: Albumin 3.1 G/DL (3.4-5.0); Bilirubin,Total 0.7 MG/DL (0.20-1.00); Calcium 9.1 MG/DL (8.5-10.1); Osmolality,Calculated 283.7 MOS/KG (273-304); Potassium 5.1 MMOL/L (3.5-5.1); Total Protein 8.2 G/DL (6.4-8.2)
[2021-01-20] MEDS: INSULIN REGULAR 100 UNIT/ML SUBCUT SCH ×4 (09:00→21:34)
[2021-01-20] MEDS: PANTOPRAZOLE 40 MG VIAL IV SCH (09:15)
[2021-01-20] MEDS: INSULIN GLARGINE 100 UNIT/ML SUBCUT SCH ×2 (09:15→21:34)
[2021-01-20] MEDS: CIPROFLOXACIN INJ 400 MG/200 ML PREMIX IV SCH ×2 (09:15→21:34)
[2021-01-20] MEDS: CETIRIZINE 10 MG TABLET PO SCH (09:16)
[2021-01-20] MEDS: CELECOXIB 200 MG CAPSULE PO SCH (09:16)
[2021-01-20] MEDS: carvediloL 3.125 MG TABLET PO SCH ×2 (09:16→17:32)
[2021-01-20] MEDS: amLODIPine 5 MG TABLET PO SCH (09:16)
[2021-01-20] MEDS: ESCITALOPRAM 10 MG TABLET PO SCH ×2 (09:16→21:33)
[2021-01-20] MEDS: lisinopriL 10 MG TABLET PO SCH (09:16)
[2021-01-20] MEDS: metroNIDAZOLE 500 MG TABLET PO SCH ×3 (09:16→17:32)
[2021-01-20] MEDS: FLUTICASONE 50 MCG NASAL SPRAY 16 GM BOTTLE BOTH NARES SCH ×2 (09:16→21:35)
[2021-01-20] MEDS: DOCUSATE SODIUM 100 MG CAPSULE PO SCH ×2 (09:16→21:38)
[2021-01-20] MEDS: GABAPENTIN 300 MG CAPSULE PO SCH ×3 (09:16→21:33)
[2021-01-20] MEDS: ENOXAPARIN 40 MG/0.4 ML SYRINGE SUBCUT SCH (15:47)
[2021-01-20] MEDS: ATORVASTATIN 20 MG TABLET PO SCH (21:33)
[2021-01-21] MEDS: INSULIN REGULAR 100 UNIT/ML SUBCUT SCH ×4 (07:56→20:31)
[2021-01-21] MEDS: carvediloL 3.125 MG TABLET PO SCH ×2 (09:11→17:32)
[2021-01-21] MEDS: lisinopriL 10 MG TABLET PO SCH (09:11)
[2021-01-21] MEDS: FLUTICASONE 50 MCG NASAL SPRAY 16 GM BOTTLE BOTH NARES SCH ×2 (09:11→20:31)
[2021-01-21] MEDS: metroNIDAZOLE 500 MG TABLET PO SCH ×2 (09:11→11:36)
[2021-01-21] MEDS: GABAPENTIN 300 MG CAPSULE PO SCH ×3 (09:11→20:31)
[2021-01-21] MEDS: amLODIPine 5 MG TABLET PO SCH (09:11)
[2021-01-21] MEDS: INSULIN GLARGINE 100 UNIT/ML SUBCUT SCH ×2 (09:11→20:31)
[2021-01-21] MEDS: CETIRIZINE 10 MG TABLET PO SCH (09:11)
[2021-01-21] MEDS: ESCITALOPRAM 10 MG TABLET PO SCH ×2 (09:11→20:31)
[2021-01-21] MEDS: CELECOXIB 200 MG CAPSULE PO SCH (09:11)
[2021-01-21] MEDS: PANTOPRAZOLE 40 MG VIAL IV SCH (09:11)
[2021-01-21] MEDS: CIPROFLOXACIN INJ 400 MG/200 ML PREMIX IV SCH (11:36)
[2021-01-21 13:12] LABS: Bilirubin,Total 0.6 MG/DL (0.20-1.00); Calcium 9.1 MG/DL (8.5-10.1); Osmolality,Calculated 279.8 MOS/KG (273-304); Potassium 4.5 MMOL/L (3.5-5.1); Total Protein 7.9 G/DL (6.4-8.2)
[2021-01-21 13:47] LABS: Basophils # 0.1 10*3/uL (0.0-0.2); Basophils % 1.2 % (0.0-0.8); Eosinophils # 1.5 10*3/uL (0.0-0.87); Eosinophils % 16.1 % (0.00-10.9); Hematocrit 28.7 VOL% (35.7-47.0); Hemoglobin 8.6 GM/DL (12.0-16.0); Immature Granulocytes % 0.4 %; Immature Granulocytes Absolute 0.04 #; Lymphocytes # 2.9 10*3/uL (1.4-4.0); Lymphocytes % 30.3 % (21.3-54.2); Mean Corpuscular Volume 87.8 FL (87-102); Mean Platelet Volume 9.3 FL (9.6-12.0); Monocytes % 8.9 % (1.7-12.7); Neutrophils % 43.1 % (38.7-73.9); Platelet Count 452 T/CUMM (130-400); Red Blood Count 3.27 MC/CUMM (3.8-5.5); Red Cell Distribution Width 14.5 % (9.3-17.3); White Blood Count 9.5 T/CUMM (4-12)
[2021-01-21 14:03] LABS: Lymphocytes 16 % (20-55); Segmented Neutrophils 69 % (50-85)
[2021-01-21 14:04] LABS: Eosinophils 13 % (0-10); Hypochromasia 1+; Platelet Estimate Increased; Stomatocytes Few; Tear Drop Cells Slight; Total Cells Counted 100
[2021-01-21] MEDS: DOCUSATE SODIUM 100 MG CAPSULE PO SCH ×2 (14:25→22:29)
[2021-01-21] MEDS: METHOCARBAMOL INJ 500 MG in SODIUM CHLORIDE 0.9% 100 ML IV SCH (14:29)
[2021-01-21] MEDS: ENOXAPARIN 40 MG/0.4 ML SYRINGE SUBCUT SCH (16:03)
[2021-01-21] MEDS: HYDROmorphone PCA 30 MG/30 ML SYRINGE IV SCH (16:24)
[2021-01-21] MEDS: SODIUM CHLORIDE 0.9% 1,000 ML IV SCH (16:26)
[2021-01-21] MEDS: carisoprodoL 350 MG TABLET PO PRN (17:31)
[2021-01-21] MEDS: HYDROmorphone 2 MG/1 ML VIAL IV PRN (20:29)
[2021-01-21] MEDS: ATORVASTATIN 20 MG TABLET PO SCH (20:31)
[2021-01-22] MEDS: HYDROmorphone 2 MG/1 ML VIAL IV PRN ×5 (03:46→19:45)
[2021-01-22 05:20] LABS: Basophils # 0.1 10*3/uL (0.0-0.2); Basophils % 1.4 % (0.0-0.8); Eosinophils # 1.4 10*3/uL (0.0-0.87); Eosinophils % 13.8 % (0.00-10.9); Hematocrit 32.4 VOL% (35.7-47.0); Immature Granulocytes % 0.4 %; Immature Granulocytes Absolute 0.04 #; Lymphocytes % 29.7 % (21.3-54.2); Mean Corpuscular HGB Conc 30.9 GM/DL (32-36); Mean Corpuscular Volume 87.3 FL (87-102); Mean Platelet Volume 9.7 FL (9.6-12.0); Neutrophils % 45.7 % (38.7-73.9); Platelet Count 519 T/CUMM (130-400); Red Blood Count 3.71 MC/CUMM (3.8-5.5); Red Cell Distribution Width 14.6 % (9.3-17.3); White Blood Count 10.1 T/CUMM (4-12)
[2021-01-22 05:44] LABS: Eosinophils 13 % (0-10); Hypochromasia 1+; Lymphocytes 31 % (20-55); Microcytosis 1+; Platelet Estimate Adequate; Segmented Neutrophils 50 % (50-85); Total Cells Counted 100
[2021-01-22 05:50] LABS: Albumin 3.1 G/DL (3.4-5.0); Bilirubin,Total 1.4 MG/DL (0.20-1.00); Calcium 9.7 MG/DL (8.5-10.1); Osmolality,Calculated 284.7 MOS/KG (273-304); Potassium 4.9 MMOL/L (3.5-5.1); Total Protein 8.5 G/DL (6.4-8.2)
[2021-01-22] MEDS: DOCUSATE SODIUM 100 MG CAPSULE PO SCH ×3 (09:48→22:17)
[2021-01-22] MEDS: ESCITALOPRAM 10 MG TABLET PO SCH ×2 (09:48→22:15)
[2021-01-22] MEDS: CETIRIZINE 10 MG TABLET PO SCH (09:48)
[2021-01-22] MEDS: carisoprodoL 350 MG TABLET PO PRN ×2 (09:48→16:38)
[2021-01-22] MEDS: amLODIPine 5 MG TABLET PO SCH (09:48)
[2021-01-22] MEDS: ONDANSETRON 4 MG/2 ML VIAL IV PRN ×2 (09:49→16:39)
[2021-01-22] MEDS: GABAPENTIN 300 MG CAPSULE PO SCH ×3 (09:49→22:15)
[2021-01-22] MEDS: carvediloL 3.125 MG TABLET PO SCH ×2 (09:49→16:38)
[2021-01-22] MEDS: CELECOXIB 200 MG CAPSULE PO SCH (09:49)
[2021-01-22] MEDS: lisinopriL 10 MG TABLET PO SCH (09:49)
[2021-01-22] MEDS: PANTOPRAZOLE 40 MG VIAL IV SCH (09:49)
[2021-01-22] MEDS: INSULIN REGULAR 100 UNIT/ML SUBCUT SCH ×4 (09:50→22:14)
[2021-01-22] MEDS: INSULIN GLARGINE 100 UNIT/ML SUBCUT SCH ×2 (09:50→22:15)
[2021-01-22] MEDS: FLUTICASONE 50 MCG NASAL SPRAY 16 GM BOTTLE BOTH NARES SCH ×2 (09:51→22:16)
[2021-01-22] MEDS: ENOXAPARIN 40 MG/0.4 ML SYRINGE SUBCUT SCH (16:39)
[2021-01-22] MEDS: ATORVASTATIN 20 MG TABLET PO SCH (22:15)
[2021-01-23] MEDS: carisoprodoL 350 MG TABLET PO PRN ×2 (00:45→08:50)
[2021-01-23 08:29] VITALS: BP 132/77
[2021-01-23] MEDS: FLUTICASONE 50 MCG NASAL SPRAY 16 GM BOTTLE BOTH NARES SCH (08:49)
[2021-01-23] MEDS: carvediloL 3.125 MG TABLET PO SCH (08:50)
[2021-01-23] MEDS: CETIRIZINE 10 MG TABLET PO SCH (08:50)
[2021-01-23] MEDS: amLODIPine 5 MG TABLET PO SCH (08:50)
[2021-01-23] MEDS: GABAPENTIN 300 MG CAPSULE PO SCH (08:50)
[2021-01-23] MEDS: ESCITALOPRAM 10 MG TABLET PO SCH (08:50)
[2021-01-23] MEDS: DOCUSATE SODIUM 100 MG CAPSULE PO SCH (08:50)
[2021-01-23] MEDS: CELECOXIB 200 MG CAPSULE PO SCH (08:50)
[2021-01-23] MEDS: INSULIN GLARGINE 100 UNIT/ML SUBCUT SCH (08:51)
[2021-01-23] MEDS: PANTOPRAZOLE 40 MG VIAL IV SCH (08:51)
[2021-01-23] MEDS: INSULIN REGULAR 100 UNIT/ML SUBCUT SCH (08:51)
[2021-01-23] MEDS: lisinopriL 10 MG TABLET PO SCH (08:54)
== END 2021-01-23 11:30 | disposition home health service (06) | DRG 239 ==
LOC: N.3E
PROVIDERS: ADMIT Family Medicine; ATTEND Family Medicine